=== PATIENT | male | born 1985 | race Caucasian/White ===

== ENCOUNTER 2018-01-28 05:35 | Emergency (ER) | payer OTHER ==
[2018-01-28 05:41] VITALS: BP 128/75; PULSE 108; RESP 20; TEMP 99.9
[2018-01-28] MEDS ORDERED: IBUPROFEN 400 MG TAB PO STA (05:52)
[2018-01-28] MEDS ORDERED: HYDROcodone/APAP 5-325MG 1 EACH TAB PO STA (05:52)
--- NOTE | 2018-01-28 06:16 | ED ---
Lower Extremity Injury HPI - General Chief Complaint: Extremity Injury, Lower Stated Complaint: [facility]- foot injury Time Seen by Provider: 01/28/18 05:52 Source: patient, family Mode of arrival: ambulatory Limitations: no limitations - History of Present Illness Initial Comments: Patient is a 32-year-old man who presents following a right foot injury at work. Patient reports that his foot was run over by a [employer]. He complains of pain at the base of his toes. Denies previous injury to that area. Patient also had some bleeding there. The patient states that it has probably been 15 years since he had a tetanus shot. Complaint: foot injury Onset/Timin -: hour(s) Injury: Foot: Left Type of Injury: other (Crush) Place: work Severity: moderate Improves With: nothing Worsens With: weight bearing Associated Symptoms: swelling - Related Data Home Medications Medication Instructions Recorded Confirmed Paliperidone [Invega] 6 mg PO DAILY 01/28/18 01/28/18 Previous Rx's Medication Instructions Recorded Cephalexin [Keflex] 500 mg PO Q6HR #28 cap 01/28/18 Hydrocodone/Acetaminophen [[place] 1 each PO Q6HR PRN #20 tab 01/28/18 5-325] Allergies Allergy/AdvReac Type Severity Reaction Status Date / Time No Known Allergies Allergy Verified 01/28/18 05:41 Review of Systems ROS Statement: Those systems with pertinent positive or pertinent negative responses have been documented in the HPI. ROS Other: All systems not noted in ROS Statement are negative. Constitutional: Denies: fever Respiratory: Denies: cough, dyspnea Cardiovascular: Denies: chest pain Gastrointestinal: Denies: vomiting Skin: Reports: lesions. Denies: rash Neurological: Denies: weakness, numbness Hematological/Lymphatic: Denies: easy bleeding Past Medical History Past Medical History: No Reported History History of Any Multi-Drug Resistant Organisms: None Reported Past Surgical History: Orthopedic Surgery Additional Past Surgical History / Comment(s): left knee surgery Past Psychological History: Bipolar, Depression Smoking Status: Current some day smoker Past Alcohol Use History: None Reported Past Drug Use History: None Reported - Past Family History family Additional Family Medical History / Comment(s): mental health issues runs in the family General Exam Limitations: no limitations General appearance: alert, in no apparent distress Head exam: Present: atraumatic, normocephalic Right Knee exam: Present: normal inspection, full ROM Lower Leg exam: Present: normal inspection, full ROM. Absent: tenderness Ankle exam: Present: normal inspection, full ROM. Absent: tenderness Foot/Toe exam: Present: full ROM, tenderness, swelling, laceration, ecchymosis. Absent: deformity Skin exam: Present: warm, dry, normal color Course Vital Signs 01/28/18 05:37 Temperature 99.9 F H Pulse Rate 108 H Respiratory 20 Rate Blood Pressure 128/75 O2 Sat by Pulse 100 Oximetry Disposition Clinical Impression: Toe fracture, right Disposition: HOME SELF-CARE Condition: Good Instructions: Toe Fracture (ED) Prescriptions: Cephalexin [Keflex] 500 mg PO Q6HR #28 cap Hydrocodone/Acetaminophen [[place] 5-325] 1 each PO Q6HR PRN #20 tab PRN Reason: Pain Is patient prescribed a controlled substance at d/c from ED?: Yes Referrals: None,Stated [Primary Care Provider] - 1-2 days Jagdeep Sandhu MD [STAFF PHYSICIAN] - 1-2 days
[2018-01-28] MEDS ORDERED: CEPHALEXIN 500MG STARTER PACK 4 CAP BTL PO STA (06:43)
[2018-01-28] MEDS ORDERED: ceFAZolin 1,000 MG VIAL IM STA (06:43)
--- NOTE | 2018-01-28 07:11 | XR ---
EXAM: XR Right Foot Complete, 3 or More Views CLINICAL HISTORY: ITS.REASON XR Reason: Pain TECHNIQUE: Frontal, lateral and oblique views of the right foot. COMPARISON: No relevant prior studies available. FINDINGS: Bones/joints: Comminuted displaced fracture of the second distal phalanx. No evidence of articular involvement. Tiny opacity adjacent to the lateral aspect of the PIP joint of the third toe, cannot exclude tiny avulsion fracture or foreign body. Soft tissues: Soft tissue swelling at the mid and distal foot. IMPRESSION: 1. Comminuted displaced fracture of the second distal phalanx. 2. Tiny opacity adjacent to the lateral aspect of the PIP joint of the third toe, cannot exclude tiny avulsion fracture or foreign body.
== END 2018-01-28 07:34 | disposition home or self-care (01) ==
LOC: EC 05:35
DX: S92.531A Displaced fracture of distal phalanx of right lesser toe(s), initial encounter for closed fracture (principal); F31.9 Bipolar disorder, unspecified; W23.0XXA Caught, crushed, jammed, or pinched between moving objects, initial encounter; Y92.69 Other specified industrial and construction area as the place of occurrence of the external cause; Y99.0 Civilian activity done for income or pay
CPT/HCPCS: 99283

== ENCOUNTER 2020-02-26 15:42 | Emergency (ER) | payer OTHER ==
[2020-02-26 15:53] VITALS: BP 129/92; PULSE 71; RESP 18; TEMP 97.7
[2020-02-26 17:27] LABS: Amphetamine Screen,Urine Not Detected (NotDetected); Barbiturate Screen,Urine Not Detected (NotDetected); Benzodiazepines Screen,Urine Not Detected (NotDetected); Cocaine Screen,Urine Not Detected (NotDetected); Methadone Screen, Urine Not Detected (NotDetected); Opiate Screen,Urine Not Detected (NotDetected); Oxycodone Screen, Urine Not Detected (NotDetected); Phencyclidine Screen,Urine Not Detected (NotDetected); Tricyclic Antidepressant,Urine Not Detected (NotDetected); Urn Cannabinoid Scrn Not Detected (NotDetected)
--- NOTE | 2020-02-26 17:45 | ED ---
Psych HPI - General Chief Complaint: Psychiatric Symptoms Stated Complaint: petition Time Seen by Provider: 02/26/20 16:04 Source: patient, RN notes reviewed, old records reviewed Mode of arrival: ambulatory - History of Present Illness Initial Comments: This is a 34-year-old male with a history of schizoaffective disorder who was brought in by police and a pickup order he's not been taking his medication been very volatile hospital. He doesn't want around people's property. He's had multiple interactions with police in the last week. He's had increased agitation. Not sleeping not eating. The patient is not answering questions well and is seeming somewhat evasive please see the petition MD Complaint: other - Related Data Home Medications Medication Instructions Recorded Confirmed Ibuprofen [Motrin] 800 mg PO QID PRN 02/24/18 03/24/18 Previous Rx's Medication Instructions Recorded Hydrocodone/Acetaminophen [[place] 1 each PO Q6HR PRN #20 tab 01/28/18 5-325] Allergies Allergy/AdvReac Type Severity Reaction Status Date / Time No Known Allergies Allergy Verified 03/24/18 14:06 Review of Systems ROS Statement: Those systems with pertinent positive or pertinent negative responses have been documented in the HPI. ROS Other: All systems not noted in ROS Statement are negative. Limitations: ROS unobtainable due to patients medical condition Past Medical History Past Medical History: No Reported History History of Any Multi-Drug Resistant Organisms: None Reported Past Surgical History: Orthopedic Surgery Additional Past Surgical History / Comment(s): left knee surgery Past Psychological History: Bipolar, Depression, Schizophrenia Smoking Status: Current some day smoker Past Alcohol Use History: None Reported Past Drug Use History: None Reported - Past Family History Father Family Medical History: CVA/TIA, Diabetes Mellitus Mother Additional Family Medical History / Comment(s): aortic aneurysm family Additional Family Medical History / Comment(s): mental health issues runs in the family General Exam - General Exam Comments Initial Comments: Is a well-developed sec appearing male who is awake alert but minimally commun icative Limitations: no limitations General appearance: alert, in no apparent distress Head exam: Present: atraumatic, normocephalic, normal inspection Eye exam: Present: normal appearance, PERRL, EOMI. Absent: scleral icterus, conjunctival injection, periorbital swelling ENT exam: Present: normal exam, mucous membranes moist Neck exam: Present: normal inspection. Absent: tenderness, meningismus, lymphadenopathy Respiratory exam: Present: normal lung sounds bilaterally. Absent: respiratory distress, wheezes, rales, rhonchi, stridor Cardiovascular Exam: Present: regular rate, normal rhythm, normal heart sounds. Absent: systolic murmur, diastolic murmur, rubs, gallop, clicks GI/Abdominal exam: Present: soft, normal bowel sounds. Absent: distended, tenderness, guarding, rebound, rigid Extremities exam: Present: normal inspection, full ROM, normal capillary refill. Absent: tenderness, pedal edema, joint swelling, calf tenderness Back exam: Present: normal inspection Neurological exam: Present: alert, CN II-XII intact Psychiatric exam: Present: depressed, flat affect, other (Patient is minimally communicative) Skin exam: Present: warm, dry, intact, normal color. Absent: rash Course Vital Signs 02/26/20 15:48 Temperature 97.7 F Pulse Rate 71 Respiratory 18 Rate Blood Pressure 129/92 O2 Sat by Pulse 100 Oximetry Medical Decision Making - Medical Decision Making The patient was evaluated by psychiatric service currently is not a risk to himself or anyone else he will be discharged with a safety contract. He will follow up outpatient. - Lab Data Lab Results 02/26/20 Range/Units 17:00 Urine Opiates Screen Not Detected (NotDetected) Ur Oxycodone Screen Not Detected (NotDetected) Urine Methadone Screen Not Detected (NotDetected) Ur Propoxyphene Screen Not Detected (NotDetected) Ur Barbiturates Screen Not Detected (NotDetected) U Tricyclic Antidepress Not Detected (NotDetected) Ur Phencyclidine Scrn Not Detected (NotDetected) Ur Amphetamines Screen Not Detected (NotDetected) U Methamphetamines Scrn Not Detected (NotDetected) U Benzodiazepines Scrn Not Detected (NotDetected) Urine Cocaine Screen Not Detected (NotDetected) U Marijuana (THC) Screen Not Detected (NotDetected) Disposition Clinical Impression: Schizoaffective disorder Disposition: HOME SELF-CARE Condition: Good Instructions (If sedation given, give patient instructions): Schizoaffective Disorder (ED) Is patient prescribed a controlled substance at d/c from ED?: No Referrals: None,Stated [Primary Care Provider] - 1-2 days
== END 2020-02-26 19:55 | disposition home or self-care (01) ==
LOC: EC 15:42
DX: F25.1 Schizoaffective disorder, depressive type (principal); F25.0 Schizoaffective disorder, bipolar type; F17.200 Nicotine dependence, unspecified, uncomplicated
CPT/HCPCS: 80306; 82075; 99285

== ENCOUNTER 2020-09-13 15:59 | Inpatient (IN) | payer MEDICAID, OTHER ==
--- NOTE | 2020-09-13 16:30 | ED ---
General Adult HPI - General Chief complaint: Psychiatric Symptoms Stated complaint: Mental Health Time Seen by Provider: 09/13/20 16:11 Source: patient, police, RN notes reviewed, old records reviewed Mode of arrival: ambulatory Limitations: altered mental status - History of Present Illness Initial comments: This is a 35-year-old male with a past medical history significant for bipolar and schizophrenia. Patient is supposed be on medications but he is refusing to take him. He comes to the ER petitioned and certified. Patient himself does not know why is here and does not really want to talk about it. Patient indicates that the patient is not taking any medications and he is extremely paranoid. Patient does deny any physical complaints today. Patient denies any fever chills or cough per patient denies any chest pain or difficulty breathing. Patient denies abdominal pain patient denies nausea vomiting or diarrhea. She does not answer my questions about suicidal ideations or homicidal ideations. - Related Data Home Medications Medication Instructions Recorded Confirmed No Known Home Medications 09/13/20 09/13/20 Allergies Allergy/AdvReac Type Severity Reaction Status Date / Time No Known Allergies Allergy Verified 09/13/20 16:53 Review of Systems ROS Statement: Those systems with pertinent positive or pertinent negative responses have been documented in the HPI. ROS Other: All systems not noted in ROS Statement are negative. Past Medical History Past Medical History: No Reported History History of Any Multi-Drug Resistant Organisms: None Reported Past Surgical History: Orthopedic Surgery Additional Past Surgical History / Comment(s): left knee surgery Past Psychological History: Bipolar, Depression, Schizophrenia Smoking Status: Former smoker Past Alcohol Use History: None Reported Past Drug Use History: None Reported - Past Family History Father Family Medical History: CVA/TIA, Diabetes Mellitus Mother Additional Family Medical History / Comment(s): aortic aneurysm family Additional Family Medical History / Comment(s): mental health issues runs in the family General Exam - General Exam Comments Initial Comments: GENERAL: Patient is well-developed and well-nourished. Patient is nontoxic and well- hydrated and is in no acute distress. ENT: Neck is soft and supple. No significant lymphadenopathy is noted. Oropharynx is clear. Moist mucous membranes. Neck has full range of motion without eliciting any pain. EYES: The sclera were anicteric and conjunctiva were pink and moist. Extraocular movements were intact and pupils were equal round and reactive to light. Eyelids were unremarkable. PULMONARY: Unlabored respirations. Good breath sounds bilaterally. No audible rales rhonchi or wheezing was noted. CARDIOVASCULAR: There is a regular rate and rhythm without any murmurs gallops or rubs. ABDOMEN: Soft and nontender with normal bowel sounds. SKIN: Skin is clear with no lesions or rashes and otherwise unremarkable. NEUROLOGIC: Patient is alert and oriented x3. Cranial nerves II through XII are grossly intact. Motor and sensory are also intact. Normal speech, volume and content. Symmetrical smile. MUSCULOSKELETAL: Normal extremities with adequate strength and full range of motion. No lower extremity swelling or edema. No calf tenderness. LYMPHATICS: No significant lymphadenopathy is noted PSYCHIATRIC: Patient is very hesitant to answer any questions. Patient does agree that he is not taking his medications. Limitations: altered mental status Course Vital Signs 09/13/20 16:04 Temperature 98.2 F Pulse Rate 103 H Respiratory 18 Rate Blood Pressure 103/54 O2 Sat by Pulse 99 Oximetry Medical Decision Making - Medical Decision Making Patient was evaluated. EPS and determined the patient would be admitted. Disposition Clinical Impression: Paranoid schizophrenia Disposition: ADMITTED IP TO THIS HOSP Referrals: None,Stated [Primary Care Provider] - 1-2 days Time of Disposition: 17:15
[2020-09-13] MEDS ORDERED: MAG HYDROX/AL HYDROX/SIMETH 30 ML CUP PO PRN (19:50)
[2020-09-13] MEDS ORDERED: haloperidoL 5 MG TAB PO PRN (19:52)
--- NOTE | 2020-09-14 00:19 | P.PN ---
Progress Note - Text Progress Note Date: 09/13/20 patient refused to be evaluated at this time
--- NOTE | 2020-09-14 11:48 | P.HP ---
Psychiatric H&P - . H&P Date: 09/14/20 History & Physical: Allergies Allergy/AdvReac Type Severity Reaction Status Date / Time No Known Allergies Allergy Verified 09/13/20 16:53 Vital Signs Temp 98.2 F 09/13/20 22:02 Pulse 84 09/13/20 22:02 Resp 16 09/13/20 22:02 BP 127/77 09/13/20 22:02 Pulse Ox 99 09/13/20 16:04 Intake & Output 09/13/20 09/14/20 09/14/20 18:59 06:59 18:59 Weight 70.307 kg 65.907 kg Laboratory Last Values Coronavirus (PCR) Not Detected (Not Detectd) 09/13/20 18:14 09/14/20 11:39 IDENTIFYING DATA: Patient is a single, employed, 35-year-old male who was admitted involuntarily for psychosis and nonadherence with treatment. HPI: Patient presented to the hospital with petition and certificate filled out by his outpatient psychiatrist Dr. Chand. The patient has been noted to be increasingly paranoid, responding to internal stimuli, and expressing auditory hallucinations in the context of medication nonadherence. The patient has been also been noted to be lacking significant insight into his condition believing that he is not mentally ill. As per certificate, the patient has also been hostile and aggressive to his outpatient psychiatrist. Upon evaluation in the psychiatric unit, the patient remains paranoid and responding to internal stimuli. He remains suspicious this provider and provides very limited responses. He does admit to some auditory hallucinations but is not reporting any visual hallucinations. He refuses to respond to any further questioning regarding his psychiatric symptoms. The patient expresses that he does not require any psychotropic medications as he is not mentally ill. He is not reporting any suicidal or homicidal ideation, intention, and/or plan. He reports that he has no significant issues with sleep or appetite. He does state that he has been "living in the cold"and this has been noted as a concern of his outpatient psychiatrist as the patient has not been utilizing his heater this winter. PAST PSYCHIATRIC HISTORY: The patient has a previous diagnosis of schizophrenia. He is currently open to outpatient psychiatric treatment with [facility] through Dr. Chand. He is unable to recall prior psychotropic medications he has been on. As per review of his previous psychiatric inpatient admissions (3 in 2016), the patient has had previous trials of Strattera, Zoloft, Invega and Zyprexa. He also received Invega Sustenna in the past. He is not reporting any prior attempts at suicide. PMH: No reported past medical history ALLERGIES: NO KNOWN DRUG ALLERGIES CHEMICAL DEPENDENCY HISTORY: Denies FAMILY PSYCHIATRIC/SUBSTANCE USE HISTORY: Unable to assess SOCIAL HISTORY: Patient was born and raised in [place], [place]. As per review of his chart, the patient has 2 children. Is unsure if he is still with his girlfriend as the patient is uncooperative in providing any social history. MENTAL STATUS EXAM: General Appearance: Patient appears to be stated age is alert, directable, and attempts to cooperate. Patient appears to have fair hygiene and grooming. Behavior: Patient is seated without any agitated behavior. Psychomotor activity slightly elevated. Speech: Patient's speech is nonspontaneous, monotone, very slow to respond. Very superficial. Mood/Affect: Patient reports their mood is "fine," affect is blunted and suspicious. Suicidality/Homicidality: Patient denies any suicidal or homicidal ideation, intention, and/or plan. Perceptions: Patient denies any visual hallucinations but does acknowledge some auditory hallucinations. Though content/process: Patient is very paranoid and suspicious. He appears to be responding to internal stimuli. Thought blocking is evident. Memory and concentration: AOX3, grossly intact for the purposes of this session. Can spell "WORLD" backwards Judgment and insight: poor STRENGTHS/WEAKNESSES: Patient has been noted to have a stable living environment. Weaknesses include noncompliance with outpatient treatment and appointments. Very poor insight. INTELLECT: average IMPRESSIONS: Schizophrenia PLAN: -Patient is admitted under involuntary status to [facility] for stabilization of psychiatric symptoms and safety. A second certification was completed and along with petition will be filed for court. -Medications : Will start patient on Risperdal 0.5 mg by mouth twice a day for psychosis. -We will need to obtain [facility] records -Ativan and Haldol PRN for agitation/aggression -Patient was informed of the risks, benefits and side effects of the medication and patient verbally consented to taking the medications. -Internal Medicine consult to perform medical evaluation and physical. -SW on board for discharge planning. Encourage patient to participate in groups to work on coping skills.
[2020-09-14] MEDS: risperiDONE 0.5 MG TAB PO SCH (20:48)
[2020-09-15] MEDS: risperiDONE 0.5 MG TAB PO SCH ×4 (09:11→21:57)
--- NOTE | 2020-09-15 09:48 | P.PN ---
Progress Note - Text Progress Note Date: 09/15/20 Interval History: Patient was seen wandering the hallways and was directable and agreeable to speak with casualty underwriter in the office. Patient continues to be very guarded and very limited in providing history. He is currently not reporting any suicidal or homicidal ideation, intention, or plan. He is not reporting any auditory or visual hallucinations but continues to display significant paranoia and appears to be responding to internal stimuli. He continues to refuse any medications. The patient continues to question the motivations of this provider. He reports "he about me into this office to talk so why are we talking?" When asked if he is experiencing any ideas of reference, the patient pauses and refuses to answer. Mental Status Exam: General Appearance: Patient appears to be stated age is alert, directable, and intermittently cooperative. Patient has fair hygiene and grooming. He is of thin build. Shaved head. Behavior: Patient occasionally fidgets in his chair. Although he is seated without any agitated behavior. Speech: Speech is nonspontaneous, monotone, and very slow to respond. Mood/Affect: Mood is "okay." Affect is flat. Suicidality/Homicidality: Patient denies having any suicidal or homicidal ideation intent or plan. Perceptions: Patient denies any visual hallucinations and denies any auditory hallucinations Though content/process: Thought blocking is evident. Patient does appear to be responding intentional stimuli. Patient is paranoid. Memory and concentration: AOX3, grossly intact for the purposes of this session Judgment and insight: Very poor Assessment Schizophrenia Plan: -Patient is admitted under involuntary status to [facility] for stabilization of psychiatric symptoms and safety. A second certification was completed and along with petition will be filed for court. We will likely have to wait for court order. -Medications : Continue Risperdal 0.5 mg by mouth twice a day for psychosis. -Ativan and Haldol PRN for agitation/aggression -NRT - nicotine patch -SW on board for discharge planning. Encouraged the patient to participate in milieu.
[2020-09-16] MEDS: risperiDONE 0.5 MG TAB PO SCH ×2 (08:57→22:26)
--- NOTE | 2020-09-16 10:16 | P.PN ---
Progress Note - Text Progress Note Date: 09/16/20 Interval History: Patient was seen wandering the hallways and was directable and agreeable to speak with curriculum writer in his room. The patient continues to be very minimal in his responses. He is not reporting any auditory hallucinations. He did admit to some visual hallucinations but refused to elaborate. He is not reporting any suicidal or homicidal ideation, intention, and/or plan. He refuses to cooperate with the rest of the interview. He continues to refuse any medications. He believes that he does not have any mental illness. Mental Status Exam: General Appearance: Patient appears to be stated age is alert, directable, and intermittently cooperative. Patient has fair hygiene and grooming. He is of thin build. Shaved head. Behavior: Patient refuses to sit down in his room. He prefers to stand and walk around his room. Eye contact is intense. Speech: Speech is nonspontaneous, monotone, and very slow to respond. Mood/Affect: Mood is "okay." Affect is flat. Suicidality/Homicidality: Patient denies having any suicidal or homicidal ideation intent or plan. Perceptions: Patient denies any visual hallucinations and denies any auditory hallucinations Though content/process: Thought blocking is evident. Patient does appear to be responding intentional stimuli. Patient is paranoid. Memory and concentration: AOX3, grossly intact for the purposes of this session Judgment and insight: Very poor Assessment Schizophrenia Plan: -Patient is admitted under involuntary status to [facility] for stabilization of psychiatric symptoms and safety. A second certification was completed and along with the petition was filed for court. -Medications : Continue Risperdal 0.5 mg by mouth twice a day for psychosis. - Patient continues to refuse the medication. We will likely have to wait for a court order. -Ativan and Haldol PRN for agitation/aggression -NRT - nicotine patch -SW on board for discharge planning. Encouraged the patient to participate in milieu.
[2020-09-17] MEDS: risperiDONE 0.5 MG TAB PO SCH ×2 (09:26→20:51)
--- NOTE | 2020-09-17 12:46 | P.PN ---
Progress Note - Text Progress Note Date: 09/17/20 Clinical Problems: Schizophrenia, poor compliance with medication, involuntary hospitalization Interim history: I reviewed the medical record and attempted to interview the patient. He is a 35-year-old male who has a history of schizophrenia. He is admitted to the psychiatric unit involuntarily from his outpatient psychiatrist's office for increasing signs and symptoms of psychosis. He stared blankly when I approached him for the interview. He would not give me his name. He has been refusing the prescribed risperidone. He spends his time pacing the hallway. He does not attend therapeutic groups or activities. He slept 1 hour last night. Mental status exam: He presented as a tall thin casually groomed male. He made eye contact but would not speak. He appeared markedly guarded, paranoid and suspicious. He would not answer questions about psychotic expe riences. Assessment: He is markedly paranoid and probably delusional. I also suspect that he is responding to internal stimuli. He has no insight or understanding of his illness and is refusing an antipsychotic. Plan: Continue inpatient treatment. Probate hearing pending. Encourage compliance with risperidone 0.5 mg twice a day. Ativan and/or Haldol IM or by mouth when necessary for agitation or aggression. Encourage participation in therapeutic groups and activities. Evaluate clinical status response to treatment daily basis.
[2020-09-18] MEDS: risperiDONE 0.5 MG TAB PO SCH ×2 (08:42→19:54)
--- NOTE | 2020-09-18 13:25 | P.PN ---
Progress Note - Text Progress Note Date: 09/18/20 Clinical Problems: Schizophrenia, poor compliance with medication, involuntary hospitalization Interim history: I reviewed the medical record and attempted to interview the patient. He stared blankly at me when I approached him for the interview. He refused to speak. He continues to refuse to take risperidone. He spends his time pacing the hallway. He does not attend therapeutic groups or activities. He slept 1 hour last night. Nursing is administering Ativan 1 mg by mouth for restlessness or agitation. Mental status exam: He presented as a tall thin casually groomed male. He made eye contact but would not speak. He was markedly guarded, paranoid and suspicious. He would not answer questions about psychotic experiences. Assessment: He is markedly paranoid and probably delusional. He has no insight or understanding of his illness and is refusing an antipsychotic. Plan: Continue inpatient treatment. Probate hearing pending. Encourage compliance with risperidone 0.5 mg twice a day. Ativan and/or Haldol IM or by mouth when necessary for agitation or aggression. Encourage participation in therapeutic groups and activities. Evaluate clinical status response to treatment daily basis.
[2020-09-18] MEDS: HALOPERIDOL LACTATE 5 MG/ML 1 ML VIAL IM PRN (22:27)
[2020-09-18] MEDS: LORazepam 2 MG/ML INJ IM PRN (22:27)
[2020-09-19] MEDS: risperiDONE 0.5 MG TAB PO SCH ×2 (09:21→21:21)
--- NOTE | 2020-09-19 10:26 | P.PN ---
Progress Note - Text Progress Note Date: 09/19/20 Interval History: Patient was seen at his bedside. When approached, the patient refused to speak with this provider. The patient stared blankly at this provider and refused any questioning. As per staff notes, the patient is noted to sleep for 5 hours as of 5:30 AM. On 09/18/2020, when necessary Ativan and Haldol had to be given IM with security assist. The patient was noted to be unable to be redirected directed despite multiple attempts by multiple staff members. He has been noted to be intrusive and looking in other patient's rooms and shower rooms. He has also been noted to aggravate other patients with his behavior. Mental Status Exam: General Appearance: Patient appears to be stated age is alert, directable, and intermittently cooperative. Patient has fair hygiene and grooming. He is of thin build. Shaved head. Behavior: Patient stares blankly at this provider. Speech: Patient refuses to speak today. Mood/Affect: Unable to assess mood. Affect is flat. Suicidality/Homicidality: Unable to assess Perceptions: Unable to assess Though content/process: Unable to assess Memory and concentration: Unable to assess Judgment and insight: Very poor Assessment Schizophrenia Plan: -Patient is admitted under involuntary status to [facility] for stabilization of psychiatric symptoms and safety. A second certification was completed and along with the petition was filed for court. -Medications : Continue Risperdal 0.5 mg by mouth twice a day for psychosis. - Patient continues to refuse the medication. We will likely have to wait for a court order. -Ativan and Haldol PRN for agitation/aggression -NRT - nicotine patch -SW on board for discharge planning. Encouraged the patient to participate in milieu.
[2020-09-20] MEDS: HALOPERIDOL LACTATE 5 MG/ML 1 ML VIAL IM PRN (00:22)
[2020-09-20] MEDS: LORazepam 2 MG/ML INJ IM PRN (00:23)
[2020-09-20] MEDS: risperiDONE 0.5 MG TAB PO SCH ×2 (08:35→20:39)
--- NOTE | 2020-09-20 10:17 | P.PN ---
Progress Note - Text Progress Note Date: 09/20/20 Interval History: Patient was seen at his bedside. Patient continues to refuse to participate in the psychiatric interview. He has been noted by staff to require Haldol and Ativan for threatening to kill a female peer. He was also noted to be going up to the nursing desk 30 times in 1 hour and presenting as paranoid, bizarre, and intrusive. He refuses to answer any questions by this provider. The patient only states that he feels tired. Mental Status Exam: General Appearance: Patient appears to be stated age is alert, not directable, and uncooperative.. Patient has fair hygiene and grooming. He is of thin build. Shaved head. Behavior: Patient stares blankly at this provider. Speech: Patient refuses to speak today. Mood/Affect: Unable to assess mood. Affect is flat. Suicidality/Homicidality: Unable to assess Perceptions: Unable to assess Though content/process: Unable to assess Memory and concentration: Unable to assess Judgment and insight: Very poor Assessment Schizophrenia Plan: -Patient is admitted under involuntary status to [facility] for stabilization of psychiatric symptoms and safety. A second certification was completed and along with the petition was filed for court. Court scheduled for 09/28/2019. -Medications : Continue Risperdal 0.5 mg by mouth twice a day for psychosis. - Patient continues to refuse the medication. We are awaiting court order. -Ativan and Haldol PRN for agitation/aggression -NRT - nicotine patch -SW on board for discharge planning. Encouraged the patient to participate in milieu.
[2020-09-21] MEDS: risperiDONE 0.5 MG TAB PO SCH ×2 (09:01→19:59)
--- NOTE | 2020-09-21 10:09 | P.PN ---
Progress Note - Text Progress Note Date: 09/21/20 Interval History: Patient was seen at his bedside. Patient is intimately cooperative with the psychiatric interview. Yesterday in the afternoon, he approached the provider and followed the provider around the refuse to answer any questions with responses of any substance. This morning, he is not participating in the interview again. He continues to refuse medications. Mental Status Exam: General Appearance: Patient appears to be stated age is alert, not directable, a nd uncooperative.. Patient has fair hygiene and grooming. He is of thin build. Shaved head. Behavior: Patient stares blankly at this provider. Speech: Patient refuses to speak today. Mood/Affect: Unable to assess mood. Affect is flat. Suicidality/Homicidality: Unable to assess Perceptions: Unable to assess Though content/process: Unable to assess Memory and concentration: Unable to assess Judgment and insight: Very poor Assessment Schizophrenia Plan: -Patient is admitted under involuntary status to [facility] for stabilization of psychiatric symptoms and safety. A second certification was completed and along with the petition was filed for court. Court scheduled for 09/28/2019. -Medications : Continue Risperdal 0.5 mg by mouth twice a day for psychosis. - Patient continues to refuse the medication. We are awaiting court order. -Ativan and Haldol PRN for agitation/aggression -NRT - nicotine patch -SW on board for discharge planning. Encouraged the patient to participate in milieu.
[2020-09-21] MEDS: LORazepam 1 MG TAB PO PRN (14:33)
[2020-09-21] MEDS ORDERED: LORazepam 1 MG TAB PO STA (19:15)
[2020-09-22] MEDS: risperiDONE 0.5 MG TAB PO SCH (08:54)
--- NOTE | 2020-09-22 09:37 | P.PN ---
Progress Note - Text Progress Note Date: 09/22/20 Interval History: Patient was seen wandering the hallways. Patient attempted to reach for an RN stress and made gestures to grab the RN yesterday and was given Haldol and Ativan. He has been noted by staff to be increasingly paranoid and inappropriate and entering personal space of staff members. This morning, the patient agrees to walk with this program writer but continues to provide a limited responses during the psychiatric interview. The patient reports that he is often thinking about "what is with people's eyes?" He refuses to elaborate. He does not answer any other questions presented to him. Of note, the patient to take Risperdal 0.5 mg last night. Refuse this morning's dose. Mental Status Exam: General Appearance: Patient appears to be stated age is alert, not directable, and uncooperative.. Patient has fair hygiene and grooming. He is of thin build. Shaved head. Behavior: Patient stares blankly at this provider. Speech: Patient's speech is nonspontaneous, monotone, low in volume. Mood/Affect: Unable to assess mood. Affect is flat. Suicidality/Homicidality: Unable to assess Perceptions: Unable to assess Though content/process: Unable to assess Memory and concentration: Unable to assess Judgment and insight: Very poor Assessment Schizophrenia Plan: -Patient is admitted under involuntary status to [facility] for stabilization of psychiatric symptoms and safety. A second certification was completed and along with the petition was filed for court. Court scheduled for 09/28/2019. -Medications : We will increase Risperdal to 1 mg by mouth twice a day for psychosis- Patient continues to occasionally refuse the medication. We are awaiting court order. -Ativan and Haldol PRN for agitation/aggression -NRT - nicotine patch -SW on board for discharge planning. Encouraged the patient to participate in milieu.
[2020-09-22] MEDS: risperiDONE 1 MG TAB PO SCH (21:00)
[2020-09-23] MEDS: risperiDONE 1 MG TAB PO SCH ×2 (08:30→21:18)
--- NOTE | 2020-09-23 11:37 | P.PN ---
Progress Note - Text Progress Note Date: 09/23/20 Interval History: Patient was seen wandering the hallways. Patient continues to refuse to participate in a psychiatric interview with much substance. He stated that he did not really want to answer any questions today. When asked if he was suicidal, homicidal, or expressing any hallucinations patient abruptly yelled back, "YEP! YEP! YEP!" He was asked if he would take the medications to which she did not reply. He has been documented to have difficulty sleeping as well. Mental Status Exam: General Appearance: Patient appears to be stated age is alert, not directable, and uncooperative. Patient has fair hygiene and grooming. He is of thin build. Shaved head. Behavior: Patient stares blankly at this provider. Speech: Patient's speech is nonspontaneous, high in volume today. Mood/Affect: Unable to assess mood. Affect is flat to agitated. Suicidality/Homicidality: Unable to assess Perceptions: Unable to assess Though content/process: Unable to assess Memory and concentration: Unable to assess Judgment and insight: Very poor Assessment Schizophrenia Plan: -Patient is admitted under involuntary status to [facility] for stabilization of psychiatric symptoms and safety. A second certification was completed and along with the petition was filed for court. Court scheduled for 09/28/2019. -Medications : Continue Risperdal 1 mg by mouth twice a day for psychosis- Patient continues to occasionally refuse the medication. We are awaiting court order. -Ativan and Haldol PRN for agitation/aggression -NRT - nicotine patch -SW on board for discharge planning. Encouraged the patient to participate in milieu.
[2020-09-24] MEDS: LORazepam 1 MG TAB PO PRN (00:11)
[2020-09-24] MEDS: risperiDONE 1 MG TAB PO SCH ×3 (00:11→19:36)
[2020-09-24] MEDS: ACETAMINOPHEN TAB 325 MG TAB PO PRN (09:06)
--- NOTE | 2020-09-24 10:59 | P.PN ---
Progress Note - Text Progress Note Date: 09/24/20 Interval history: Patient was seen resting on his mattress which he placed on the floor of his room which also appears to be in disarray. Patient refuses to participate in the psychiatric interview today. He keeps a bed sheet over his head and refuses to answer any questions. The patient has been noted by staff to have troubles falling asleep last night and was noted to be pacing the hallways and was causing mischief on the unit with other patients. He did take 1 mg of Risperdal last night after direction from staff. He refused any other medications. Mental Status Exam: General Appearance: Patient appears to be stated age is alert, not directable, and uncooperative. Patient is covering himself with a bedsheet. Behavior: No eye contact. Speech: Unable to assess Mood/Affect: Unable to assess mood or affect. Suicidality/Homicidality: Unable to assess Perceptions: Unable to assess Though content/process: Unable to assess Memory and concentration: Unable to assess Judgment and insight: Very poor Assessment/Plan: Continue with current diagnosis. Patient continues to meet criteria for inpatient psychiatric admission for symptom stabilization and safety. Patient will be maintained on current psychotropic medication regimen. He is scheduled for his probate Court hearing on 09/28/2020. Once court ordered, we will begin to administer psychotropic medications if necessary. Monitor for medication compliance and for any psychotropic medication side effe cts. Will continue to monitor ongoing response to treatment. Encouraged participation in milieu.
[2020-09-25] MEDS: risperiDONE 1 MG TAB PO SCH ×2 (08:29→20:50)
--- NOTE | 2020-09-25 10:58 | P.PN ---
Progress Note - Text Progress Note Date: 09/25/20 Interval history: Patient was seen resting on his mattress which he placed on the floor of his room which also appears to be in disarray. Patient continues to refuse to participate in the psychiatric interview. The patient becomes angry with this provider for entering his room. The patient states "he can enter and come and go as you please can you?" The patient does not answer any questions regarding his mental health. He was informed that he will be going to court this Saturday. He does not answer any further questioning. Mental Status Exam: General Appearance: Patient appears to be stated age is alert, not directable, and uncooperative. Patient is covering himself with a bedsheet. Behavior: No eye contact. Speech: Unable to assess Mood/Affect: Unable to assess mood . Affect appears angry. Suicidality/Homicidality: Unable to assess Perceptions: Unable to assess Though content/process: Unable to assess Memory and concentration: Unable to assess Judgment and insight: Very poor Assessment/Plan: Continue with current diagnosis. Patient continues to meet criteria for inpatient psychiatric admission for symptom stabilization and safety. Patient will be maintained on current psychotropic medication regimen as he intermittently takes the Risperdal. He is scheduled for his probate Court hearing on 09/28/2020. Once court ordered, we will begin to administer psychotropic medications if necessary. Monitor for medication compliance and for any psychotropic medication side effects. Will continue to monitor ongoing response to treatment. Encouraged participation in milieu.
[2020-09-26] MEDS: risperiDONE 1 MG TAB PO SCH ×2 (09:48→21:13)
[2020-09-27] MEDS: risperiDONE 1 MG TAB PO SCH ×2 (07:41→20:36)
--- NOTE | 2020-09-27 09:34 | P.PN ---
Progress Note - Text Progress Note Date: 09/26/20 Interval History: Patient was seen resting in bed in his room. His room appears to be in disarray. The patient placed his mattress on the floor. The patient continues to refuse to participate in the psychiatric evaluation with any effort. He continues to be intermittently cooperative and only answers a few questions but with little substance when he does. When asked what the psychiatric team can do for him, the patient states "you are supposed to do something for me?" He does not answer to any further questions during the psychiatric evaluation. Mental Status Exam: General Appearance: Patient appears to be stated age is alert, not directable, and uncooperative. Patient has fair hygiene and grooming. He is of thin build. Shaved head. Behavior: Patient stares blankly at this provider. He appears to be blinking quite often. Speech: Patient's speech is nonspontaneous, high in volume today. Mood/Affect: Unable to assess mood. Affect is flat to agitated. Suicidality/Homicidality: Unable to assess Perceptions: Unable to assess Though content/process: Unable to assess Memory and concentration: Unable to assess Judgment and insight: Very poor Assessment Schizophrenia Plan: -Patient is admitted under involuntary status to [facility] for stabilization of ps ychiatric symptoms and safety. A second certification was completed and along with the petition was filed for court. Court scheduled for 09/28/2019. -Medications : Continue Risperdal 1 mg by mouth twice a day for psychosis- Patient refused the medication for the last 2 days. We are awaiting court order. -Ativan and Haldol PRN for agitation/aggression -NRT - nicotine patch -SW on board for discharge planning. Encouraged the patient to participate in milieu.
--- NOTE | 2020-09-27 10:05 | P.PN ---
Progress Note - Text Progress Note Date: 09/27/20 Interval History: Patient was seen resting in bed in his room. His room continues to appear to be in disarray. The patient placed his mattress on the floor. The patient is responding to some questioning but continues to remain mostly uncooperative. The patient does endorse suicidal ideation when asked but is unable to elaborate on any intention or plan. He does not respond to any questioning regarding homicidal ideation, auditory hallucinations, or visual hallucinations. He continues to present with odd behavior on the unit asking bizarre and nonlinear questions to staff when he is up from bed. He did refuse breakfast this morning. He was informed that he'll be going to court tomorrow, and despite being informed about his mental health hearing before, the patient expresses surprise. Mental Status Exam: General Appearance: Patient appears to be stated age is alert, not directable, and uncooperative. Patient has fair hygiene and grooming. He is of thin build. Shaved head. Behavior: Intermittent eye contact. Psychomotor activity appears slow. Speech: Patient's speech is nonspontaneous, low in volume today. Mood/Affect: Unable to assess mood. Flat affect. Suicidality/Homicidality: Unable to assess Perceptions: Unable to assess Though content/process: Unable to assess Memory and concentration: Unable to assess Judgment and insight: Very poor Assessment Schizophrenia Plan: -Patient is admitted under involuntary status to [facility] for stabilization of psychiatric symptoms and safety. A second certification was completed and along with the petition was filed for court. Court scheduled for 09/28/2019. -Medications : Continue Risperdal 1 mg by mouth twice a day for psychosis- Patient refused the medication for the last 2 days. We are awaiting court order. -Ativan and Haldol PRN for agitation/aggression -NRT - nicotine patch -SW on board for discharge planning. Encouraged the patient to participate in milieu.
[2020-09-28] MEDS: risperiDONE 1 MG TAB PO SCH (09:03)
[2020-09-28] MEDS ORDERED: HALOPERIDOL LACTATE 5 MG/ML 1 ML VIAL IM PRN (11:35)
--- NOTE | 2020-09-28 13:33 | P.PN ---
Progress Note - Text Progress Note Date: 09/28/20 Interval History: Patient was seen wandering the hallways. The patient refused to go to court this morning. He has since been placed on a court order for mental health treatment. Patient continues to be slow in responding to any questions. Interview continues to be limited as the patient refuses to participate with any significant substance. The patient was informed that he would be receiving the medication by injection if he refuses oral medication. The patient initially seems calm, stating that he is receiving injections before so he is okay to take them again. He then refuses to participate in any further interview. Mental Status Exam: General Appearance: Patient appears to be stated age is alert, not directable, and uncooperative. Patient has fair hygiene and grooming. He is of thin build. Shaved head. Behavior: Intermittent eye contact. Psychomotor activity appears slow. Speech: Patient's speech is nonspontaneous, low in volume today. Mood/Affect: Unable to assess mood. Flat affect. Suicidality/Homicidality: Unable to assess Perceptions: Unable to assess Though content/process: Unable to assess Memory and concentration: Unable to assess Judgment and insight: Very poor Assessment Schizophrenia Plan: -Patient is admitted under involuntary status to [facility] for stabilization of psychiatric symptoms and safety. Patient is now court ordered for mental health treatment as of 09/28/2020. -Medications : We will start Haldol 2.5 mg by mouth twice a day with plans to transition the patient to Haldol Decanoate due to history of non-adherence with treatment. As the patient is under court order, the patient refuses oral Haldol he received H aldol lactate IM. -Ativan and Haldol PRN for agitation/aggression -NRT - nicotine patch - on board for discharge planning. Encouraged the patient to participate in milieu.
[2020-09-28] MEDS ORDERED: diphenhydrAMINE 25 MG CAP PO SCH (21:00)
[2020-09-28] MEDS: haloperidoL 5 MG TAB PO SCH (21:19)
[2020-09-29] MEDS: haloperidoL 5 MG TAB PO SCH (09:11)
--- NOTE | 2020-09-29 10:39 | P.PN ---
Progress Note - Text Progress Note Date: 09/29/20 Interval History: Patient was seen resting in bed and refused to get up and speak with this credit underwriter. When this provider asked him questions, the patient abruptly yells "no!" This provider informed him that he is court-ordered for medications and the patient began to echo everything the provider asked him. He has been noted to sleep for 5 hours and has been eating his meals. Mental Status Exam: General Appearance: Patient appears to be stated age is alert, not directable, and uncooperative. Patient has fair hygiene and grooming. He is of thin build. Shaved head. Behavior: Intermittent eye contact. Psychomotor activity appears slow. Speech: Abrupt and loud. Echolalia noted today. Mood/Affect: Unable to assess mood. Flat affect. Suicidality/Homicidality: Unable to assess Perceptions: Unable to assess Though content/process: Unable to assess Memory and concentration: Unable to assess Judgment and insight: Very poor Assessment Schizophrenia Plan: -Patient is admitted under involuntary status to [facility] for stabilization of psychiatric symptoms and safety. Patient is now court ordered for mental health treatment as of 09/28/2020. -Medications : We will start Haldol 2.5 mg by mouth twice a day with plans to transition the patient to Haldol Decanoate due to history of non-adherence with treatment. As the patient is under court order, the patient refuses oral Haldol he received Haldol lactate IM. -Ativan and Haldol PRN for agitation/aggression -NRT - nicotine patch -SW on board for discharge planning. Encouraged the patient to participate in milieu.
[2020-09-29] MEDS: HALOPERIDOL ORAL SOLN 10 MG/5 ML CUP PO SCH (22:22)
[2020-09-30] MEDS: HALOPERIDOL ORAL SOLN 10 MG/5 ML CUP PO SCH ×2 (08:55→21:10)
[2020-09-30] MEDS ORDERED: HALOPERIDOL LACTATE 5 MG/ML 1 ML VIAL IM PRN (10:17)
--- NOTE | 2020-09-30 10:17 | P.PN ---
Progress Note - Text Progress Note Date: 09/30/20 Interval History: Patient was seen resting in bed today. The patient states that he feels "numb." When asked to explain, the patient is unable to further elaborate. He is not reporting any suicidal or homicidal ideation, intention, and/or plan. When asked if he is endorsing any auditory hallucinations, the patient replies "Yep." He is not reporting any visual hallucinations. She continues to not elaborate further on any of his symptoms. He did not report any issues with his appetite or sleep. Mental Status Exam: General Appearance: Patient appears to be stated age is alert, not directable, and uncooperative. Patient has fair hygiene and grooming. He is of thin build. Shaved head. Behavior: Eye contact is slowly improving. Psychomotor activity appears slow. Speech: Much more spontaneous today. Continues to be minimal. Mood/Affect: Patient feels "numb." Flat affect. Suicidality/Homicidality: Patient denies any suicidal or homicidal ideation, intent, and/or plan. Perceptions: Patient admits auditory hallucinations. Though content/process: Thought blocking appears to be less today. Memory and concentration: Intact for the purposes of this session Judgment and insight: Very poor Assessment Schizophrenia Plan: -Patient is admitted under involuntary status to [facility] for stabilization of psychiatric symptoms and safety. Patient is now court ordered for mental health treatment as of 09/28/2020. -Medications : We will increase his Haldol oral solution to 4 mg by mouth twice a day. Over the weekend he'll gradually titrated to 5 mg by mouth twice a day. The plan is to transition the patient to Haldol Decanoate due to concern that the patient will be nonadherent with treatment. As the patient is under court order, if the patient refuses oral Haldol he received Haldol lactate IM. -Ativan and Haldol PRN for agitation/aggression -NRT - nicotine patch -SW on board for discharge planning. Encouraged the patient to participate in milieu.
[2020-10-01] MEDS: HALOPERIDOL ORAL SOLN 10 MG/5 ML CUP PO SCH ×2 (08:56→21:36)
--- NOTE | 2020-10-01 16:04 | P.PN ---
Progress Note - Text Progress Note Date: 10/01/20 Clinical Problems: Schizophrenia Interim history: I reviewed the medical record and attempted to interview the patient. He would not make eye contact, get out of bed for the interview or speak. He he shook his head indicating "no" when I asked him if he has any problems or concerns. He has been complaint with Haldol. He does not attend therapeutic groups and activities. He spends his time in bed and only coming out for medications or meals. He slept 7 hours last night. He has had no episodes of behavioral dyscontrol Mental status exam: He stated as a thin disheveled appearing 35-year-old male who is laying in bed. He would not contact but appeared to be attending to the conversation. He would not speak. He did not appear to be responding to internal stimuli. Assessment: He was court ordered for treatment as of 09/28/2020. Plan: Continue inpatient treatment. Safety precautions. Continue Haldol 5 mg twice a day. Encourage participation in therapeutic groups and activities. Evaluate clinical status response to treatment daily basis..
[2020-10-02] MEDS: HALOPERIDOL ORAL SOLN 10 MG/5 ML CUP PO SCH ×2 (09:26→21:28)
--- NOTE | 2020-10-02 13:22 | P.PN ---
Progress Note - Text Progress Note Date: 10/02/20 Clinical Problems: Schizophrenia Interim history: I reviewed the medical record and attempted to interview the patient. He would not make eye contact or get out of bed for the interview. His only complaint works that his "knows was stuffed up." He has been compliant with prescribed medications. He does not attend therapeutic groups and activities. He spends his time in bed and only coming out for medications or meals. He slept 6 hours last night. He has had no episodes of behavioral dyscontrol Mental status exam: He resented as a thin disheveled appearing 35-year-old male who is laying in bed. He did not make eye contact but appeared to be attending to the conversation. He was irritable. He would not answer questions. He did not appear to be responding to internal stimuli. Assessment: He is severely mentally ill minimally improved from admission. Plan: Continue inpatient treatment. Safety precautions. Continue Haldol 5 mg twice a day. Encourage participation in therapeutic groups and activities. Evaluate clinical status response to treatment daily basis.
[2020-10-03] MEDS: HALOPERIDOL ORAL SOLN 10 MG/5 ML CUP PO SCH ×2 (08:28→20:14)
--- NOTE | 2020-10-03 10:28 | P.PN ---
Progress Note - Text Progress Note Date: 10/03/20 Interval History: Patient was seen resting in bed today. The patient continues to express that he just feels "numb." He continues to be oppositional when providing answers. He expresses that he is constantly thinking of how to get out of here. He does not believe he is schizophrenic. He is not reporting any auditory or visual hallucinations. He is not reporting any suicidal or homicidal ideation, intent, and/or plan. He continues to endorse paranoia towards his treatment team. When informed that he would have to display an ability to care for himself prior to discharge, patient vehemently states that he was not given the opportunity to shower during this admission. He also reported that he is not eating despite being confronted that he has been documented to eat. Mental Status Exam: General Appearance: Patient appears to be stated age is alert, not directable, and uncooperative. Patient has fair hygiene and grooming. He is of thin build. Shaved head. Behavior: High contact is intense. Psychomotor activity appears elevated. Patient intermittently covers himself of his bed sheets. Speech: Spontaneous, loud in volume Mood/Affect: Patient feels "numb." Irritable affect. Suicidality/Homicidality: Patient denies any suicidal or homicidal ideation, intent, and/or plan. Perceptions: Patient does not endorse any auditory or visual hallucinations. Though content/process: Paranoia is evident. Memory and concentration: Intact for the purposes of this session Judgment and insight: Very poor Assessment Schizophrenia Plan: -Patient is admitted under involuntary status to MHU for stabilization of psychiatric symptoms and safety. Patient is now court ordered for mental health treatment as of 09/28/2020. -Medications : We will increase Haldol to 7.5 mg by mouth twice a day. The plan is to transition the patient to Haldol Decanoate due to concern that the patient will be nonadherent with treatment. As the patient is under court order, if the patient refuses oral Haldol he received Haldol lactate IM. -The patient may require adult foster care or [facility]ci setting due to the severity of his mental illness. -Ativan and Haldol PRN for agitation/aggression -NRT - nicotine patch -SW on board for discharge planning. Encouraged the patient to participate in milieu.
[2020-10-03] MEDS: MAGNESIUM HYDROXIDE 2,400 MG/10 ML CUP PO PRN (20:16)
[2020-10-04] MEDS: HALOPERIDOL ORAL SOLN 10 MG/5 ML CUP PO SCH ×2 (09:05→20:13)
--- NOTE | 2020-10-04 12:35 | P.PN ---
Progress Note - Text Progress Note Date: 10/04/20 Clinical Problems: Schizophrenia Interim history: I reviewed the medical record, interviewed the patient and discussed his treatment and treatment plan during team meeting. He would not get up at for interview. He made brief eye contact but would not speak. Nursing staff reports that he is been irritable throughout the day and initially refused his oral dose of Haldol. When he was presented with the choice between the oral medication and the IM injection he chose the oral. He slept 6 hours last night. He attended 2 therapeutic groups yesterday. Mental status exam: He presented as irritable and angry 35-year-old male who was uncooperative. He made brief eye contact. He had no prominent physical abnormalities. He had an angry facial expression. His he was voluntarily mute. I could not evaluate his thought content and thought process due to his refusal to speak. She did not appear to responding to internal stimuli. Assessment: He is seriously mentally ill and moderately improved from admission. He continues to require inpatient treatment due to severity of his psychotic disorder. Plan: Continue inpatient treatment. Continue Haldol 7.5 mg twice a day. Continue Haldol and/or Ativan when necessary for agitation or aggression. Encourage participation in therapeutic groups and activities. Evaluate clinical status response to treatment daily basis.
[2020-10-04] MEDS: MAGNESIUM HYDROXIDE 2,400 MG/10 ML CUP PO PRN (20:14)
[2020-10-05] MEDS: HALOPERIDOL ORAL SOLN 10 MG/5 ML CUP PO SCH ×2 (08:53→20:20)
--- NOTE | 2020-10-05 11:15 | P.PN ---
Progress Note - Text Progress Note Date: 10/05/20 Interval History: Patient was seen resting in bed today. The patient is confrontational today. He calls this provider "retarded" when he was asked general screening questions. The patient states that he is upset that he is still currently admitted and does not believe he needs any treatment. He does not report any auditory or visual hallucinations. He is denying any paranoia or delusions. He does not answer any questions regarding any suicidal or homicidal ideation, intention, and/or plan. Of note, the patient has been noted by staff to be difficult and taking his medications. He does take them in the end though. Mental Status Exam: General Appearance: Patient appears to be stated age is alert, not directable, and uncooperative. Patient has fair hygiene and grooming. He is of thin build. Shaved head. Behavior: High contact is intense. Psychomotor activity appears elevated. Speech: Spontaneous, normal in volume. Mood/Affect: Patient feels "annoyed." Irritable affect. Suicidality/Homicidality: Unable to assess Perceptions: Patient does not endorse any auditory or visual hallucinations. Though content/process: Paranoia is evident. Memory and concentration: Intact for the purposes of this session Judgment and insight: Very poor Assessment Schizophrenia Plan: -Patient is admitted under involuntary status to MHU for stabilization of psychiatric symptoms and safety. Patient is now court ordered for mental health treatment as of 09/28/2020. -Medications : We will increase Haldol to 10 mg by mouth twice a day. The plan is to transition the patient to Haldol Decanoate due to concern that the patient will be nonadherent with treatment. As the patient is under court order, if the patient refuses oral Haldol he received Haldol lactate IM. -The patient may require adult foster care or [facility] setting due to the severity of his mental illness. -Ativan and Haldol PRN for agitation/aggression -NRT - nicotine patch -SW on board for discharge planning. Encouraged the patient to participate in milieu.
--- NOTE | 2020-10-05 12:52 | P.PN ---
Progress Note - Text Progress Note Date: 10/05/20 Interval History: Patient continues to be somnolent and unresponsive today. She is nonverbal. She has been noted to be somewhat arousable at times by nursing staff but remains primarily unchanged since admission. We are unable to obtain any significant history today. Mental Status Exam: General Appearance: Patient has NG Tube in place. She appears her stated age. No acute distress. Behavior: Patient is somnolent but arousable. She makes appropriate eye contact. Speech: Nonverbal today. Mood/Affect: Unable to assess Suicidality/Homicidality: Unable to assess Perceptions: Unable to assess Though content/process: Unable to assess Memory and concentration: Unable to assess Judgment and insight: poor Assessment Encephalopathy Major Depressive Disorder, with catatonia UTI Plan: -We will increase Ativan to 3 mg IV every 6 hours. When the patient was at a dose of 3.5 mg IV every 6 hours, the patient appeared to be doing significantly better in regards to responsiveness. -After discussion with neurology and the primary team, the recommendation will be that the patient is transferred to a facility that can administer ECT. The patient is able to respond to Ativan but we are limited due to the patient's age. We recommend that the patient be evaluated in a facility that can offer ECT to treat the patient's catatonia. The patient's Lauren Nick rating scales for catatonia have been placed in her chart. -Will continue lamictal at this time. -Psychiatry will continue to follow loosely.
[2020-10-05 14:12] VITALS: BMI 21.4
[2020-10-06] MEDS: HALOPERIDOL ORAL SOLN 10 MG/5 ML CUP PO SCH ×2 (08:38→20:19)
--- NOTE | 2020-10-06 10:44 | P.PN ---
Progress Note - Text Progress Note Date: 10/06/20 Interval History: Patient was seen resting in bed today. The patient continues to be irritable and occasionally confrontational. When asked if he was feeling suicidal, the patient brushes off the question and then states that he artery answered it when he did not. He is currently not reporting any auditory or visual hallucinations. He tends to repeat what is asked of him back to this provider. He has been adherent with his medications and is currently not reporting any significant side effects. He terminates the interview because he states he has to use the restroom. Patient's room is noticed to be unkempt and disheveled as well. Mental Status Exam: General Appearance: Patient appears to be stated age is alert, not directable, and uncooperative. Patient has fair hygiene and grooming. He is of thin build. Shaved head. Behavior: Eye contact continues to be intense but intermittent. Psychomotor activity appears elevated. Speech: Spontaneous, normal in volume. Mood/Affect: Patient feels "annoyed." Irritable affect. Suicidality/Homicidality: Unable to assess Perceptions: Patient does not endorse any auditory or visual hallucinations. Though content/process: Paranoia is evident. Memory and concentration: Intact for the purposes of this session Judgment and insight: Very poor Assessment Schizophrenia Plan: -Patient is admitted under involuntary status to MHU for stabilization of psychiatric symptoms and safety. Patient is now court ordered for mental health treatment as of 09/28/2020. -Medications : Continue Haldol 10 mg by mouth twice a day. We will administer Haldol Decanoate tomorrow. -The patient may require adult foster care or skilled nursing setting due to the severity of his mental illness. -Ativan and Haldol PRN for agitation/aggression -NRT - nicotine patch -SW on board for discharge planning. Encouraged the patient to participate in milieu.
[2020-10-07] MEDS: HALOPERIDOL ORAL SOLN 10 MG/5 ML CUP PO SCH (08:32)
[2020-10-07] MEDS ORDERED: HALOPERIDOL DECANOATE 100 MG/ML 1 ML VIAL IM STA (10:42)
--- NOTE | 2020-10-07 11:04 | P.PN ---
Progress Note - Text Progress Note Date: 10/07/20 Interval History: Patient was seen resting in bed today. The patient continues to be confrontational or oppositional. During the mornings he tends to be irritable and uncooperative with any psychiatric interview. In the afternoons he has been noted to be acting odd and has requested to hold the hand of this provider multiple times. Of note, the patient's mother had a significant discussion with our social insurance specialist who reported that "he does not sound right. I know he's taking the medication but it isn't helping. I tried to talk about the injection and he got angry." The patient's mother reports that the patient is not at baseline. The patient has also verbalized to her that he would shoot himself in the head or punch someone in the face. He has been adherent with his medications and is not reporting any significant side effects at this time. Mental Status Exam: General Appearance: Patient appears to be stated age is alert, not directable, and uncooperative. Patient has fair hygiene and grooming. He is of thin build. Shaved head. Behavior: Eye contact continues to be intense but intermittent. Psychomotor activity appears normal. Speech: Spontaneous, normal in volume. Mood/Affect: Patient feels "annoyed." Irritable affect. Suicidality/Homicidality: Patient is not reporting any suicidal or homicidal ideation, intention, and/or plan. Perceptions: Patient does not endorse any auditory or visual hallucinations. Though content/process: Paranoia is evident. Memory and concentration: Intact for the purposes of this session Judgment and insight: Very poor Assessment Schizophrenia Plan: -Patient is admitted under involuntary status to MHU for stabilization of psychiatric symptoms and safety. Patient is now court ordered for mental health treatment as of 09/28/2020. -Medications : We will administer Haldol Decanoate 100 mg IM today. The patient will receive Haldol Decanoate 100 mg IM as well on Saturday. -We will need to discuss with the patient's ACT team possible Crisis bed step- down. -The patient may require adult foster care or residential setting due to the severity of his mental illness. -Ativan and Haldol PRN for agitation/aggression -NRT - nicotine patch -SW on board for discharge planning. Encouraged the patient to participate in milieu.
--- NOTE | 2020-10-08 12:01 | P.PN ---
Progress Note - Text Progress Note Date: 10/08/20 Interval history: Patient was seen laying in his bed which was on the floor in his room and was fairly uncooperative and argumentative with telegraphic typewriter mechanic. He refused to answer most questions that telegraphic typewriter mechanic asked. He is denying any overnight complaints and states that he is sleeping fairly. He rephrases many questions back to telegraphic typewriter mechanic in a defiant manner. He appears to have minimal insight and judgment. He denied going to any groups today. At this time patient denies any suicidal or homicidal ideations intent or plan. Denies any Auditory or visual hallucinations. Mental status exam: General Appearance: Patient appears to be stated age is alert, uncooperative and argumentative. Behavior: No agitated behavior. Patient is calm and directable uncooperative. Speech: Patient's speech is fluent and nonpressured. Mood/Affect: Mood is "fine", affect is congruent and constricted. Suicidality/Homicidality: Patient denies having any suicidal or homicidal ideation intent or plan. Perceptions: Patient denies any auditory or visual hallucinations. Though content/process: [place], poverty of content. Rephrases many questions and refuses to answer. Minimal insight in judgment. Memory and concentration: AOX3, grossly intact for the purposes of this session Judgment and insight: Poor Assessment/Plan: Continue with current diagnosis. Patient continues to meet criteria for inpatient psychiatric admission for symptom stabilization and safety.Patient will be maintained on current psychotropic medication regimen. Patient is being transitioned onto Haldol Decanoate and will received his next injection on Saturday. Monitor for medication compliance and for any psychotropic medication side effects. Will continue to monitor ongoing response to treatment. Encouraged participation in milieu.
[2020-10-08] MEDS: ACETAMINOPHEN TAB 325 MG TAB PO PRN (21:15)
--- NOTE | 2020-10-09 10:29 | P.PN ---
Progress Note - Text Progress Note Date: 10/09/20 Interval history: Patient was seen laying in his bed which was on the floor in his room and con tinues to be fairly uncooperative and argumentative with caption writer. Patient was initially living with his bed sheets covering his face and refused to wake up for caption writer initially. Patient asked caption writer "who the hell are you" and states that "you have some plastic thing that says Vu but I don't trust you". He refused to answer most questions that caption writer asked or answered them bizarrely and redirect them back at caption writer. He is denying any overnight complaints and states that he is sleeping fairly. He appears to have minimal insight and judgment. At this time patient denies any suicidal or homicidal ideations intent or plan. Denies any Auditory or visual hallucinations. Patient abruptly ended interview and told caption writer that he does not want to talk to him any longer. Mental status exam: General Appearance: Patient appears to be stated age is alert, uncooperative and argumentative. Behavior: No agitated behavior. Patient is uncooperative. Hostile. Speech: Patient's speech is fluent and nonpressured. Mood/Affect: Mood is "ok", affect is congruent and constricted. Suicidality/Homicidality: Patient denies having any suicidal or homicidal ideation intent or plan. Perceptions: Patient denies any auditory or visual hallucinations. Though content/process: [place], poverty of content. Rephrases many questions and refuses to answer. Minimal insight in judgment. Memory and concentration: AOX3, grossly intact for the purposes of this session Judgment and insight: Poor Assessment/Plan: Continue with current diagnosis. Patient continues to meet criteria for inpatient psychiatric admission for symptom stabilization and safety.Patient will be maintained on current psychotropic medication regimen. Patient is being transitioned onto Haldol Decanoate and will received his next injection on Saturday. Monitor for medication compliance and for any psychotropic medication side effects. Will continue to monitor ongoing response to treatment. Encouraged participation in milieu.
[2020-10-09] MEDS: HALOPERIDOL LACTATE 5 MG/ML 1 ML VIAL IM PRN (16:19)
[2020-10-09] MEDS: LORazepam 2 MG/ML INJ IM PRN (16:19)
[2020-10-09] MEDS ORDERED: HALOPERIDOL LACTATE 5 MG/ML 1 ML VIAL IM ONE (16:40)
[2020-10-09] MEDS ORDERED: LORazepam 2 MG/ML INJ IM STA (16:40)
[2020-10-09 16:54] VITALS: RESP 18
--- NOTE | 2020-10-09 17:01 | P.MHFACE ---
Face to Face Restrain/Seclus - Evaluation Patient's Immediate Situation: Endangers others' safety, Endangers staff safety Patient's Medical & Behavioral Condition: Alert, Agitated (Evaluated the patient patient is in 4 point restraints still agitated patient in dangers the staff safety and we are called to evaluate the patient patient in no medical distress patient continues to be not cooperative patient received Haldol continue 4. restraints as recommended by psychiatry) Need to Continue or Terminate Restraint or Seclusion: Continue (Patient is in 4 point restraints and and we are called to evaluate patient continues to be agitated not cooperative patient needs to be continued on the restraint as recommended by psychiatry until medication response)
[2020-10-10] MEDS ORDERED: HALOPERIDOL DECANOATE 100 MG/ML 1 ML VIAL IM ONE (06:00)
[2020-10-10] MEDS ORDERED: HALOPERIDOL DECANOATE 100 MG/ML 1 ML VIAL IM SCH (10:00)
--- NOTE | 2020-10-10 12:09 | P.PN ---
Progress Note - Text Progress Note Date: 10/10/20 Interval History: Patient was seen wandering the hallways and was directable and agreeable to speak with inspector automatic typewriter in his room with no one else present. Patient expresses that he is upset that he is currently admitted. He does not believe that he needs to be treated for mental health reasons. He was informed that he has been court ordered for mental health treatment and expresses that he is upset with this decision. He was informed that he was offered a chance to represent himself to the commercial collections specialist but that he refused. The patient becomes upset at this and is asking if he can be discharged. He was informed that there is still concern for his behaviors and his lack of mental stability at this time due to his recent episodes of agitation, and bizarre behavior. Patient continues to deny any of these as actually occurring. The patient continues to be intrusive with staff and peers he has been noted to be attempting to grab at female staff and asking male staff to hold his hand and enter their personal space. He has been adherent with his medications and received Haldol Decanoate on Saturday and will be receiving another dose today. Over the weekend, the patient required restraints after the patient began yelling and a female staff in a female peer in the hallway. He was also noted to be throwing things in his room. He is resisted IM medications and became aggressive toward staff and security. Mental Status Exam: General Appearance: Patient appears to be stated age, is alert, difficult to direct, and intermittently cooperative. Behavior: Patient appears to be irritable and is constantly pacing about in his room. Eye contact is intermittent but intense. Speech: Patient's speech is fluent and nonpressured. Mood/Affect: Mood is irritable, affect is angry. Suicidality/Homicidality: Patient does not endorse any suicidal or homicidal ideation, intention, and/or plan. Perceptions: Patient refuses to answer. Though content/process: Patient does endorse some paranoia today. Memory and concentration: Grossly intact for the purposes of today's session. Judgment and insight: Very poor Assessment Schizophrenia Plan: -Patient continues to meet criteria for inpatient psychiatric admission for symptom stabilization and safety. Patient is currently under court order for mental health treatment as of 09/28/2020. -Medications: Haldol Decanoate 100 mg IM will be administered today. We will start Depakote 500 mg by mouth at bedtime to address mood stability/impulsivity/intrusiveness. -When necessary Ativan and Haldol for agitation/aggression. -NRT - nicotine patch -LAITH on board for discharge planning. Encouraged the patient to participate in john goyal.
[2020-10-10] MEDS ORDERED: DIVALPROEX ER 500 MG TAB.ER.24H PO SCH (21:00)
[2020-10-10] MEDS: ACETAMINOPHEN TAB 325 MG TAB PO PRN (22:48)
--- NOTE | 2020-10-11 11:42 | P.PN ---
Progress Note - Text Progress Note Date: 10/11/20 Interval History: Patient was seen wandering the hallways and was directable and was initially agreeable to speak with freelance writer in his room with no one else present. Patient reports that he just feels constantly tired. He states that he missed breakfast this morning because of the side effects and the dictation making him feel overly sedated. When asked the normal screening questions, the patient does express that he is not suicidal but expresses that he is very annoyed that he is constantly asked if he is. He denies any homicidal ideation, intent, and/or plan. When asked if he is expressing auditory hallucinations, the patient refuses to answer. The patient has been noted yesterday afternoon to be sexually inappropriate with female staff. He had been asked multiple times to get away from the nursing station. The patient did receive Haldol Decanoate yesterday. He is currently not reporting any side effects aside from sedation. Patient continues to express significant distrust with the treatment team as well as his outpatient provider. He does not believe that he needs to be here any longer and feels like people are conspiring against him. Mental Status Exam: General Appearance: Patient appears to be stated age, is alert, difficult to direct, and intermittently cooperative. Behavior: Patient has covered himself with his bedsheets and away from this provider No eye contact today. Speech: Patient's speech is fluent and nonpressured. Patient raises his voice. He is noted to be more spontaneous today. Mood/Affect: Mood is irritable, affect is angry. Suicidality/Homicidality: Patient does not endorse any suicidal or homicidal ideation, intention, and/or plan. Perceptions: Patient refuses to answer. Though content/process: Paranoia is endorsed. Fixated on discharge. Memory and concentration: Grossly intact for the purposes of today's session. Judgment and insight: Very poor Assessment Schizophrenia Plan: -Patient continues to meet criteria for inpatient psychiatric admission for symptom stabilization and safety. Patient is currently under court order for mental health treatment as of 09/28/2020. -Medications: Haldol Decanoate 100 mg IM was administered yesterday. The patient has received a total of 200 mg IM of Haldol Decanoate. We will change the patient's Depakote to Depakene syrup and increase it to 750 mg by mouth at bedtime to address impulsivity and mood stabilization. -When necessary Ativan and Haldol for agitation/aggression. -NRT - nicotine patch -SW on board for discharge planning. Encouraged the patient to participate in milieu.
[2020-10-11] MEDS ORDERED: VALPROIC ACID ORAL SOLN 250 MG/5 ML CUP PO SCH (21:00)
[2020-10-12] MEDS: ACETAMINOPHEN TAB 325 MG TAB PO PRN (09:19)
--- NOTE | 2020-10-12 11:21 | P.PN ---
Progress Note - Text Progress Note Date: 10/12/20 Interval History: Patient was seen wandering the hallways and was directable and was agreeable to speak with pattern chart writer in his room with no one else present. We discussed at length that his ACT team felt that he was not currently ready for discharge. The patient responds "they barely know me as a person, how do they know what I'm actually like?" He was also informed that he continues to display some auditory and intrusive behaviors towards staff. Patient was informed that the treatment team needs to see an improvement in behavior before we can consider discharge. He initially provides a confrontational response but later lens. He is not reporting any suicidal or homicidal ideation, intention, and/or plan. He is not reporting auditory or visual hallucinations. He denies any paranoia or delusions at this time. He is been adherent with his medications he is not reporting any significant side effects. Mental Status Exam: General Appearance: Patient appears to be stated age, is alert, directable, and intermittently cooperative. Behavior: Patient has covered himself with his bedsheets and away from this provider. Intermittent eye contact today. Speech: Patient's speech is fluent and nonpressured. Spontaneous. Mood/Affect: Mood is irritable, affect is frustrated. Suicidality/Homicidality: Patient does not endorse any suicidal or homicidal ideation, intention, and/or plan. Perceptions: Patient reports no auditory or visual hallucinations. Though content/process: No delusional thought content is endorsed. Memory and concentration: Grossly intact for the purposes of today's session. Judgment and insight: Very poor Assessment Schizophrenia Plan: -Patient continues to meet criteria for inpatient psychiatric admission for symptom stabilization and safety. Patient is currently under court order for mental health treatment as of 09/28/2020. -Medications: Haldol Decanoate 100 mg IM was administered yesterday. The patient has received a total of 200 mg IM of Haldol Decanoate. We will increase Depakene syrup to 1000 mg by mouth at bedtime. - Patient appears to be somewhat more directable and cooperative today. Will check depakote level saturday. -When necessary Ativan and Haldol for agitation/aggression. -NRT - nicotine patch -SW on board for discharge planning. Encouraged the patient to participate in milieu.
[2020-10-12] MEDS: VALPROIC ACID ORAL SOLN 250 MG/5 ML CUP PO SCH (20:48)
[2020-10-12] MEDS: IBUPROFEN 400 MG TAB PO PRN (20:49)
--- NOTE | 2020-10-13 10:26 | P.PN ---
Progress Note - Text Progress Note Date: 10/13/20 Interval History: Patient was seen resting in bed and was confrontational and irritable on approach. The patient continues to ask this provider "why do you keep asking the same questions every day?" This provider continues to educate the patient that it is his job to evaluate the patient's mental health daily and to screen for concerns for suicidality, homicidality, and psychosis. The patient continues to be confrontational and responds yes to every question. He states that he is suicidal, homicidal, and experiencing auditory and visual hallucinations. He reports that there is some paranoia. He does not expand on this provider tries to further explore. He has been adherent with his medications but is not reporting any significant side effects at this time. Mental Status Exam: General Appearance: Patient appears to be stated age, is alert, difficult to dir ect, and uncooperative. Behavior: Patient has covered himself with his bedsheets and away from this provider. Intermittent eye contact today. Speech: Patient's speech is fluent and nonpressured. The patient is very bob in his responses. Mood/Affect: Mood is irritable, affect is angry. Suicidality/Homicidality: Patient endorses suicidal and homicidal ideation. Perceptions: Patient endorses auditory and visual hallucinations. Though content/process: Patient endorses paranoia. Memory and concentration: Grossly intact for the purposes of today's session. Judgment and insight: Very poor Assessment Schizophrenia Plan: -Patient continues to meet criteria for inpatient psychiatric admission for symptom stabilization and safety. Patient is currently under court order for mental health treatment as of 09/28/2020. -Medications: The patient has received a total of 200 mg IM of Haldol Decanoate. Continue Depakene syrup to 1000 mg by mouth at bedtime. Will check depakote level saturday. -When necessary Ativan and Haldol for agitation/aggression. -NRT - nicotine patch -SW on board for discharge planning. Encouraged the patient to participate in milieu.
[2020-10-13] MEDS: VALPROIC ACID ORAL SOLN 250 MG/5 ML CUP PO SCH (20:34)
--- NOTE | 2020-10-14 10:31 | P.PN ---
Progress Note - Text Progress Note Date: 10/14/20 Interval History: Patient was seen resting in bed and was confrontational and irritable on approach. Patient abruptly answers yes to all the psychiatric screening questions. He said yes to suicidal and homicidal ideation. He reported yes to auditory and visual hallucinations. He refuses to elaborate on any of these symptoms. He later was open to more conversation. We discussed at length that the patient is currently admitted and has a guardian due to his inability to care for himself secondary to his mental illness. The patient continues to report that he does not have a mental illness that needs treating and that he is able to care for himself. This provider also discussed with the patient that he needs to display good behavior prior to discharge. He remains confrontational but has been adherent with his medications. He is currently not reporting any significant side effects. The patient expresses that he is upset with his mother ran a is his guardian stating that she has an inability to care for herself and that she is a 100 needs to be petitioned and brought to the hospital. Mental Status Exam: General Appearance: Patient appears to be stated age, is alert, difficult to direct, and uncooperative. Behavior: Patient is lying in bed but is currently not displaying any agitated behavior. Intense eye contact. Speech: Patient's speech is fluent and nonpressured. The patient is very bob in his responses. Mood/Affect: Mood is irritable, affect is annoyed and frustrated. Suicidality/Homicidality: Patient endorses suicidal and homicidal ideation. Perceptions: Patient endorses auditory and visual hallucinations. Though content/process: Patient endorses paranoia. Memory and concentration: Grossly intact for the purposes of today's session. Judgment and insight: Very poor Assessment Schizophrenia Plan: -Patient continues to meet criteria for inpatient psychiatric admission for symptom stabilization and safety. Patient is currently under court order for mental health treatment as of 09/28/2020. -Medications: The patient has received a total of 200 mg IM of Haldol Decanoate. Continue Depakene syrup to 1000 mg by mouth at bedtime. Depakote level ordered. -When necessary Ativan and Haldol for agitation/aggression. -NRT - nicotine patch -SW on board for discharge planning. Encouraged the patient to participate in milieu.
[2020-10-14] MEDS: VALPROIC ACID ORAL SOLN 250 MG/5 ML CUP PO SCH (20:26)
[2020-10-14] MEDS: MAGNESIUM HYDROXIDE 2,400 MG/10 ML CUP PO PRN (21:42)
--- NOTE | 2020-10-15 17:08 | P.PN ---
Subjective Progress Note Date: 10/15/20 Subjective: Patient was seen today as a cross coverage for . The patient was mary gil, chart reviewed, case discussed with the treatment team. Patient reports interrupted sleep last night, and appetite was reported as " decreased". Patient has not been going to groups and other unit activities. The patient is compliant with his medications and denies any adverse reactions. Patient was very superficial and guarded in answering questions. Reports continued to feel depressed and has high anxiety. Reports suicidal ideation but denies any plan or intent to hurt himself or others. When asking about auditory hallucinations, he responded "I hear your voice". He refused to answer some questions and started to ask about "when I am going to leave". Patient was educated to discuss discharge plan with his primary psychiatrist Objective: Vitals has been reviewed. Mental status examination; Appearance: The patient appears stated age, adequately groomed and dressed, no specific features. Gait/posture: Normal gait, Normal arm swinging: No abnormal movements. Attitude and behavior: Not engaged, not cooperative, poor eye contact. Motor activity: Normal psychomotor activity Speech: Normal rate, tone. Mood: Anxious, depressed Affect: Constricted Thought form: Impoverished Thought content: Non-delusional, reports suicidal thoughts, denies homicidal thoughts, denies intentions or plans. Perception: Denies any auditory or visual hallucinations Attention: No impairment. Orientation: Patient patient was fully oriented to time place person and situation. Insight: Patient has fair insight about his psychiatric disorder. Judgment: Patient has fair judgment about his psychiatric treatment. Assessment: Schizophrenia Rule out schizoaffective disorder Plan: Continue inpatient level of care due to need for further monitoring and stabilization Precautions: Continue 15 minutes check for safety. Consider medical consultation if any acute medical issues arise. Provide the patient individual, group therapy, substance use disorder counseling to give better insight and learn coping skills. Medications: Haldol Decanoate last dose 100 mg IM given on 10/10/20 Depakote 1000 mg at bedtime for mood stabilization. Continue as needed medications for psychiatric emergencies including psychosis, agitation and anxiety. Continue non-psychiatric medications for medical conditions as recommended by the medical team. Discharge patient to OUTPATIENT services upon a stabilization Objective - Vital Signs Vital signs: Vital Signs Temp 97.1 F L 10/13/20 11:55 Pulse 89 10/09/20 17:23 Resp 18 10/09/20 17:23 BP 116/64 10/09/20 17:23 Pulse Ox 98 10/09/20 17:23
[2020-10-15] MEDS: VALPROIC ACID ORAL SOLN 250 MG/5 ML CUP PO SCH (20:14)
[2020-10-16] MEDS: IBUPROFEN 400 MG TAB PO PRN ×3 (01:03→13:32)
[2020-10-16] MEDS: ACETAMINOPHEN TAB 325 MG TAB PO PRN ×4 (03:15→18:06)
--- NOTE | 2020-10-16 04:01 | P.PN ---
Progress Note - Text Progress Note Date: 10/16/20 The patient seen on the [facility] due to complaints of tooth pain. The patient reported L lower molar tooth pain on-going for the past 24 hours. He denied fever or chills. Denied difficulty swallowing. General: Non-toxic, in no acute distress, appears stated age, normal weight HEENT: NC/AT, anicteric sclerae, moist conjunctiva, no lid-lag, PERRLA, L lower molar w/ tooth decay, L lateral mandibular tenderness without swelling, no submandibular or submental lymphadenopathy noted Skin: Warm, dry Extremities: No edema or contractures Psychiatric: Alert and oriented to person, place and time, appropriate affect Assessment/plan Pulpitis vs periodontitis -Will give empiric antibiotic coverage with Amoxicillin and Metronidazole -Patient will need dental evaluation: will consult oral surgery
[2020-10-16] MEDS: metroNIDAZOLE 250 MG TABLET PO SCH ×3 (04:17→21:16)
[2020-10-16] MEDS: AMOXICILLIN 500 MG CAP PO SCH ×2 (07:51→15:55)
[2020-10-16 08:51] LABS: HCT 41.1 % (39.0-53.0); HGB 13.6 gm/dL (13.0-17.5); MCH 28.7 pg (25.0-35.0); MCHC 33.1 g/dL (31.0-37.0); MCV 86.6 fL (80.0-100.0); Mean Platelet Volume 6.8; Platelet Count 240 k/uL (150-450); RBC 4.74 m/uL (4.30-5.90); RDW 12.5 % (11.5-15.5); WBC 9.6 k/uL (3.8-10.6)
[2020-10-16 09:03] LABS: African American GFR (CKD) >90 (>60 ml/min/1.73 sqM); Anion Gap 10 mmol/L; Blood Urea Nitrogen 19 mg/dL (9-20); Calcium 9.3 mg/dL (8.4-10.2); Carbon Dioxide 28 mmol/L (22-30); Chloride 99 mmol/L (98-107); Glucose 111 mg/dL (74-99); Non-African American GFR(CKD) >90 (>60 ml/min/1.73 sqM); Potassium 4.3 mmol/L (3.5-5.1); Sodium 137 mmol/L (137-145)
--- NOTE | 2020-10-16 14:16 | P.PN ---
Subjective Progress Note Date: 10/16/20 Subjective: Patient was seen today as a cross coverage for Dr. Styles. The patient was evaluated, chart reviewed, case discussed with the treatment team. Patient continues to present the same as yesterday was very superficial and guarded answers. He states still feeling depressed but denies feeling hopeless or suicidal. Denies any intent or plan to hurt himself or others. Denies any hallucinations, paranoid ideation, or delusions. At one point, the patient refused to answer any more question and continues to give no response and mute. No report of the sleep problem and patient ate his breakfast and lunch today. Patient does not attend groups or other unit activities, but reported that he is taking his medications and no side effects. Objective: Vitals has been reviewed. Mental status examination; Appearance: The patient appears stated age, adequately groomed and dressed, no specific features. Gait/posture: Normal gait, Normal arm swinging: No abnormal movements. Attitude and behavior: Not engaged, not cooperative, poor eye contact. Motor activity: Normal psychomotor activity Speech: Normal rate, tone. Mood: depressed Affect: Constricted Thought form: Impoverished Thought content: Non-delusional, denies suicidal thoughts, denies homicidal thoughts, denies intentions or plans. Perception: Denies any auditory or visual hallucinations Attention: No impairment. Orientation: Patient patient was fully oriented to time place person and situation. Insight: Patient has fair insight about his psychiatric disorder. Judgment: Patient has fair judgment about his psychiatric treatment. Assessment: Schizophrenia Rule out schizoaffective disorder Plan: Continue inpatient level of care due to need for further monitoring and stabilization Precautions: Continue 15 minutes check for safety. Consider medical consultation if any acute medical issues arise. Provide the patient individual, group therapy, substance use disorder counseling to give better insight and learn coping skills. Medications: Haldol Decanoate last dose 100 mg IM given on 10/10/20 Depakote 1000 mg at bedtime for mood stabilization. Continue as needed medications for psychiatric emergencies including psychosis, agitation and anxiety. Continue non-psychiatric medications for medical conditions as recommended by the medical team. Discharge patient to OUTPATIENT services upon a stabilization Objective - Vital Signs Vital signs: Vital Signs Temp 97.1 F L 10/13/20 11:55 Pulse 89 10/09/20 17:23 Resp 18 10/09/20 17:23 BP 116/64 10/09/20 17:23 Pulse Ox 98 10/09/20 17:23 - Labs CBC & Chem 7: 10/16/20 08:39 10/16/20 08:39 Labs: Abnormal Lab Results - Last 24 Hours (Table) 10/16/20 Range/Units 08:39 Glucose 111 H (74-99) mg/dL
[2020-10-16] MEDS: IBUPROFEN 600 MG TAB PO PRN (18:08)
[2020-10-16] MEDS: VALPROIC ACID ORAL SOLN 250 MG/5 ML CUP PO SCH (21:17)
[2020-10-16] MEDS: LORazepam 1 MG TAB PO PRN (22:09)
[2020-10-17] MEDS: AMOXICILLIN 500 MG CAP PO SCH ×3 (00:19→16:25)
[2020-10-17] MEDS: metroNIDAZOLE 250 MG TABLET PO SCH ×3 (06:28→21:03)
[2020-10-17] MEDS: IBUPROFEN 600 MG TAB PO PRN ×2 (08:26→16:26)
--- NOTE | 2020-10-17 10:53 | P.PN ---
Progress Note - Text Progress Note Date: 10/17/20 Interval History: Patient was seen at bedside but was much more agreeable and cooperative on approach. The patient is not reporting any suicidal or homicidal ideation, intention, and/or plan. He is not reporting any auditory or visual hallucinations. He is denying any paranoia or delusions. He continues to be inquiring about his discharge. He reports that he has no issues taking care of himself and that the concerns of his mother as well as the ACT team are out of proportion. This provider tried to educate the patient that when he is taking his medications he appears to be in better control of his faculties. The patient has not had any significant events over the weekend. He has been adherent with his medications is not reporting any significant side effects. Reports no chest pain, shyness of breath, or issues going to the restroom. The patient does express that he has a desire to get on disability and find employment as well. He expresses he wants to find more meaning in his life. We discussed at length that these concerns should be brought up to his outpatient provider as well. Mental Status Exam: General Appearance: Patient appears to be stated age, is alert, directable and cooperative. Behavior: Patient is lying in bed but is currently not displaying any agitated behavior. Fair eye contact. Speech: Patient's speech is fluent and nonpressured. Spontaneous, with normal tone. Mood/Affect: Mood is less irritable, mildly improving. Affect is congruent and constricted. Suicidality/Homicidality: Patient does not reporting any suicidal or homicidal ideation, intention, and/or plan. Perceptions: Patient does not endorse any auditory or visual hallucinations. Though content/process: Patient does not endorse any paranoia or other delusions. Memory and concentration: Grossly intact for the purposes of today's session. Judgment and insight: Mildly improving. Assessment Schizophrenia Plan: -Patient continues to meet criteria for inpatient psychiatric admission for symptom stabilization and safety. Patient is currently under court order for mental health treatment as of 09/28/2020. -Medications: The patient has received a total of 200 mg IM of Haldol Decanoate last given on 10/10/2020. Continue Depakene syrup to 1000 mg by mouth at bedtime. -We are awaiting recommendations from the patient's ACT team. -When necessary Ativan and Haldol for agitation/aggression. -NRT - nicotine patch -SW on board for discharge planning. Encouraged the patient to participate in milieu.
[2020-10-17] MEDS: BENZOCAINE 20 % GEL 15 GM TUBE MM PRN ×2 (11:50→17:07)
[2020-10-17] MEDS: ACETAMINOPHEN TAB 325 MG TAB PO PRN ×3 (11:50→21:03)
[2020-10-17] MEDS: LORazepam 1 MG TAB PO PRN (14:47)
[2020-10-17] MEDS: VALPROIC ACID ORAL SOLN 250 MG/5 ML CUP PO SCH (20:12)
[2020-10-18] MEDS: AMOXICILLIN 500 MG CAP PO SCH ×2 (00:19→08:31)
[2020-10-18] MEDS: metroNIDAZOLE 250 MG TABLET PO SCH ×2 (06:24→11:19)
[2020-10-18] MEDS: LORazepam 1 MG TAB PO PRN (09:50)
[2020-10-18 09:51] VITALS: BP 113/59; PULSE 83
--- NOTE | 2020-10-18 11:28 | P.DS ---
Providers Date of admission: 09/13/20 19:41 Expected date of discharge: 10/18/20 Attending physician: Artemio Styles MD Consults: 09/13/20 19:50 Consult Physician Routine Consulting Provider: Michelle Good Consult Reason/Comments: H&P and medical Do you want consulting provider notified?: Yes Primary care physician: Stated None - Discharge Diagnosis(es) (1) Schizophrenia Current Visit: Yes Status: Acute Priority: High Hospital Course: Admission HPI: Patient is a single, employed, 35-year-old male who was admitted involuntarily for psychosis and nonadherence with treatment. Patient presented to the hospital with petition and certificate filled out by his outpatient psychiatrist Dr. Chand. The patient has been noted to be increasingly paranoid, responding to internal stimuli, and expressing auditory hallucinations in the context of medication nonadherence. The patient has been also been noted to be lacking significant insight into his condition believing that he is not mentally ill. As per certificate, the patient has also been hostile and aggressive to his outpatient psychiatrist. Upon evaluation in the psychiatric unit, the patient remains paranoid and responding to internal stimuli. He remains suspicious this provider and provides very limited responses. He does admit to some auditory hallucinations but is not reporting any visual hallucinations. He refuses to respond to any further questioning regarding his psychiatric symptoms. The patient expresses that he does not require any psychotropic medications as he is not mentally ill. He is not reporting any suicidal or homicidal ideation, intention, and/or plan. He reports that he has no significant issues with sleep or appetite. He does state that he has been "living in the cold"and this has been noted as a concern of his outpatient psychiatrist as the patient has not been utilizing his heater this winter. Hospital course: Upon admission to the unit patient was initially monotone, non-spontaneous, flattened affect, and appeared to be responding to internal stimuli. Second clinical certificate was filled out as the patient was not presenting with inability to care for self and appeared to be psychotic. The patient was started on Risperdal for psychosis but was nonadherent with his medications and would refuse any treatment. The patient was eventually court ordered for mental health treatment as of 09/28/2020. At that time, the patient was transitioned from Risperdal to Haldol and if the patient was refusing the Haldol he would be given Haldol lactate as per court order for mental health treatment. The medication was gradually titrated to a final dose of 20 mg of Haldol per day. The patient was then transitioned to Haldol decanoate which was split into two 100 mg IM injections, with the last one given on 10/10/2020. The patient did display an improvement in his negative symptoms and began being more spontaneous but was noted to display odd and bizarre behaviors on the unit and was very intrusive with staff and peers. Depakote was started to address the patient's impulsivity and agitation. The patient was expressing a strong desire not to take Depakote and there was concern that the patient was attempting to cheek the medication. He was switched to Depakene syrup. Depakene syrup was gradually titrated to a final dose of 1000 mg at bedtime. The treatment team attempted to draw a Depakote level, but the patient is refusing at this time. Gradually, the patient did display significant improvement in his symptoms and became much more calm, cooperative, and not displaying any bizarre or intrusive behaviors. On the day of discharge, the patient is not reporting any suicidal or homicidal ideation, intention, and/or plan. He is not reporting any auditory or visual hallucinations. He is not reporting any paranoia or delusions at this time. He appears to be future oriented. He has been adherent with his Depakote. He denies any access to firearms or weapons. The patient was counseled on abstaining small substances including alcohol and marijuana. Prior to discharge, her therapy staff will be in close contact with the patient's ACT team to ensure continuity of care and safety upon discharge. The patient has been adherent with his medications and is not reporting any significant side effects. Mental status exam: General Appearance: Patient appears to be stated age is alert, pleasant, and cooperative. Patient is in no acute distress and has fair hygiene and grooming Behavior: Patient is calmly seated without any agitated behavior. Speech: Patient's speech is fluent and nonpressured. Mood/Affect: Patient reports their mood is "doing okay", affect is congruent and euthymic. Suicidality/Homicidality: Patient denies any suicidal or homicidal ideation, intention, and/or plan. Perceptions: Patient is denying any auditory or visual hallucinations. Though content/process: There is no evidence of any delusional thought content and thought process is linear and goal-directed. He is future oriented. Memory and concentration: AOX3, grossly intact for the purposes of this session. Can spell "WORLD" backwards correctly. Judgment and insight: Improved with guarded prognosis Impression: Schizophrenia Plan: -Continue with discharge today as patient has improved and stabilized psychiatrically and is not currently an imminent threat to himself and/or others. Patient will remain at chronically elevated risk for harm to self and/or others due to his limited insight and history of nonadherence with treatment. -Continue medications: -Haldol Decanoate 200 mg IM. Last loading dose of 100 mg IM of Haldol Decanoate was given on 10/10/2020. The patient is due for 200 mg IM of Haldol Decanoate on 11/07/20. -Depakene syrup 1000 mg by mouth at bedtime -Patient was counseled on the need for medication compliance and appropriate follow-up at mental health and also primary care for medical issues. Patient verbalized understanding and agreed. -Social work to arrange for and conduct family meeting to ensure safety upon discharge and answer any questions/concerns. Social work also to arrange for patients follow up appointments with [facility] for psychiatric care along with follow up with primary care provider. -Patient counseled on abstaining from recreational drugs and marijuana and alcohol. Was informed/educated on the adverse effects on their physical and mental health. Patient verbally agreed and understood. -Patient was instructed to return to the hospital or seek immediate medical care if their psychiatric or medical symptoms do worsen or reoccur. -Recommend follow-up of Depakote level in the outpatient setting. Patient is currently refusing at this time. -Psychoeducation and supportive therapy provided to patient. Risks and benefits of pharmacological treatment versus the risks and benefits of nontreatment weight and discussed. Informed consent discussion held. Common side effects of psychotropics discussed such as, but not limited to headache, GI disturbance, sexual dysfunction, movement disorders, sedation, and orthostatic hypotension. Life threatening and blackbox warnings of prescribed medications also discussed. Potential risks of operating a vehicle or heavy machinery discussed with patient at length. Advised on importance of compliance and a reliable and responsible manner. Patient advised to review FDA consumer labeling of all medications prior to taking. Patient verbalized understanding of potential risks, and agrees with current treatment plan. Patient advised to medically contact physician/emergency personnel if any acute changes in condition occur. Laboratory Results WBC 9.6 k/uL (3.8-10.6) 10/16/20 08:39 RBC 4.74 m/uL (4.30-5.90) 10/16/20 08:39 Hgb 13.6 gm/dL (13.0-17.5) 10/16/20 08:39 Hct 41.1 % (39.0-53.0) 10/16/20 08:39 MCV 86.6 fL (80.0-100.0) 10/16/20 08:39 MCH 28.7 pg (25.0-35.0) 10/16/20 08:39 MCHC 33.1 g/dL (31.0-37.0) 10/16/20 08:39 RDW 12.5 % (11.5-15.5) 10/16/20 08:39 Plt Count 240 k/uL (150-450) 10/16/20 08:39 MPV 6.8 10/16/20 08:39 Sodium 137 mmol/L (137-145) 10/16/20 08:39 Potassium 4.3 mmol/L (3.5-5.1) 10/16/20 08:39 Chloride 99 mmol/L (98-107) 10/16/20 08:39 Carbon Dioxide 28 mmol/L (22-30) 10/16/20 08:39 Anion Gap 10 mmol/L 10/16/20 08:39 BUN 19 mg/dL (9-20) 10/16/20 08:39 Creatinine 0.75 mg/dL (0.66-1.25) 10/16/20 08:39 Est GFR (CKD-EPI)AfAm >90 (>60 ml/min/1.73 sqM) 10/16/20 08:39 Est GFR (CKD-EPI)NonAf >90 (>60 ml/min/1.73 sqM) 10/16/20 08:39 Glucose 111 mg/dL (74-99) H 10/16/20 08:39 Calcium 9.3 mg/dL (8.4-10.2) 10/16/20 08:39 Coronavirus (PCR) Not Detected (Not Detectd) 09/13/20 18:14 Allergies Allergy/AdvReac Type Severity Reaction Status Date / Time No Known Allergies Allergy Verified 09/13/20 16:53 Vital Signs Temp 97.6 F 10/17/20 17:30 Pulse 83 10/18/20 09:50 Resp 18 10/09/20 17:23 BP 113/59 10/18/20 09:50 Pulse Ox 98 10/09/20 17:23 Patient Condition at Discharge: Stable Plan - Discharge Summary Discharge Rx Participant: Yes New Discharge Prescriptions: New Valproic Acid Oral Soln [Depakene Syrup] 1,000 mg PO HS 30 Days ml Haloperidol Decanoate [Haldol D] 200 mg IM Q28D #1 vial Discharge Medication List Haloperidol Decanoate [Haldol D] 200 mg IM Q28D #1 vial 10/18/20 [Rx] Valproic Acid Oral Soln [Depakene Syrup] 1,000 mg PO HS 30 Days ml 10/18/20 [Rx] Follow up Appointment(s)/Referral(s): [facility] [Outside] - 10/25/20 11:30 am (Saturday10/19/20 at 10 with LAQUITA Nielsen 10/25/[address] Chand ) None,Stated [Primary Care Provider] - 1-2 days Activity/Diet/Wound Care/Special Instructions: Activity and diet as tolerated. Avoid the use of street drugs and alcohol. Take all medications as prescribed. When you are in need of refills on your medications please contact your medical provider and/or outpatient psychiatrist to have this done. Please go to scheduled outpatient appointment for aftercare treatment. If symptoms return or become worse, call the crisis line at and/or go to the nearest emergency room for evaluation. Discharge Disposition: HOME SELF-CARE
[2020-10-18 13:44] VITALS: TEMP 98.5
== END 2020-10-18 13:25 | disposition home or self-care (01) | DRG 885 ==
LOC: EC 15:59 → 3MHU 19:41
PROVIDERS: ADMIT Psychiatry & Neurology Psychiatry; ATTEND Psychiatry & Neurology Psychiatry
DX: F20.9 Schizophrenia, unspecified (principal); R45.851 Suicidal ideations; Z91.128 Patient's intentional underdosing of medication regimen for other reason; Z20.822 Contact with and (suspected) exposure to COVID-19; T50.916A Underdosing of multiple unspecified drugs, medicaments and biological substances, initial encounter; G47.9 Sleep disorder, unspecified; R45.87 Impulsiveness; K08.89 Other specified disorders of teeth and supporting structures; Z87.891 Personal history of nicotine dependence; Z87.39 Personal history of other diseases of the musculoskeletal system and connective tissue; Z98.890 Other specified postprocedural states; Z83.3 Family history of diabetes mellitus; Z82.3 Family history of stroke; Z82.49 Family history of ischemic heart disease and other diseases of the circulatory system; Z81.8 Family history of other mental and behavioral disorders; Z78.1 Physical restraint status; Y63.6 Underdosing and nonadministration of necessary drug, medicament or biological substance
CPT/HCPCS: 80048; 82075; 85027; 87635; 99285

== ENCOUNTER 2021-07-20 02:39 | Emergency (ER) | payer OTHER ==
[2021-07-20 02:47] VITALS: BP 127/79; TEMP 98
--- NOTE | 2021-07-20 03:58 | XR ---
EXAMINATION TYPE: XR ankle complete RT DATE OF EXAM: 07/20/2021 COMPARISON: NONE HISTORY: Ankle pain TECHNIQUE: 3 views FINDINGS: There is soft tissue swelling over the lateral malleolus. Ankle mortise is anatomic. There is some lucent line projected over the medial malleolus. The talus appears intact. Subtalar joint is intact IMPRESSION: Lateral soft tissue swelling. No displaced fracture. Possible nondisplaced chip fracture of the medial malleolus.
[2021-07-20] MEDS ORDERED: Acetaminophen-Codeine 300-30mg TAB PO STA (04:01)
[2021-07-20] MEDS ORDERED: IBUPROFEN 800 MG TAB PO STA (04:01)
--- NOTE | 2021-07-20 04:01 | ED ---
Lower Extremity Injury HPI - General Chief Complaint: Extremity Injury, Lower Stated Complaint: [facility] RT ankle injury Time Seen by Provider: 07/20/21 02:42 Source: patient, RN notes reviewed, old records reviewed Mode of arrival: wheelchair Limitations: no limitations - History of Present Illness Initial Comments: This is a 35-year-old male DF for evaluation. Patient presents today for evaluation regards to right ankle pain and injury. Patient has severe ankle swelling and pain is only was able to ambulate. Patient has difficulty in learning secondary to pain. No other injuries noted. This was a work-related injury MD Complaint: ankle injury (right) -: minutes(s) Injury: Ankle: Right Type of Injury: blunt, inversion Place: work Severity: moderate Severity scale (1-10): 7 Improves With: nothing Worsens With: movement, palpation Context: walking Associated Symptoms: swelling, able to partially bear weight Treatments Prior to Arrival: cold therapy - Related Data Previous Rx's Medication Instructions Recorded Amoxic-Pot Clav 875-125Mg 1 tab PO BID 7 Days #14 tab 10/18/20 [Augmentin 875-125] Haloperidol Decanoate [Haldol D] 200 mg IM Q28D #1 vial 10/18/20 Valproic Acid Oral Soln [Depakene 1,000 mg PO HS 30 Days ml 10/18/20 Syrup] Allergies Allergy/AdvReac Type Severity Reaction Status Date / Time No Known Allergies Allergy Verified 07/20/21 02:47 Review of Systems ROS Statement: Those systems with pertinent positive or pertinent negative responses have been documented in the HPI. ROS Other: All systems not noted in ROS Statement are negative. Past Medical History Past Medical History: No Reported History History of Any Multi-Drug Resistant Organisms: None Reported Past Surgical History: Orthopedic Surgery Additional Past Surgical History / Comment(s): left knee surgery Past Psychological History: Bipolar, Depression, Schizophrenia Smoking Status: Former smoker Past Alcohol Use History: None Reported Past Drug Use History: None Reported - Past Family History Father Family Medical History: CVA/TIA, Diabetes Mellitus Mother Additional Family Medical History / Comment(s): aortic aneurysm family Additional Family Medical History / Comment(s): mental health issues runs in the family General Exam - General Exam Comments Initial Comments: All range of motion of right ankle with severe pain General appearance: alert, in no apparent distress Head exam: Present: atraumatic, normocephalic, normal inspection Eye exam: Present: normal appearance, PERRL, EOMI. Absent: scleral icterus, conjunctival injection, periorbital swelling ENT exam: Present: normal exam, mucous membranes moist Neck exam: Present: normal inspection. Absent: tenderness, meningismus, lymphadenopathy Respiratory exam: Present: normal lung sounds bilaterally. Absent: respiratory distress, wheezes, rales, rhonchi, stridor Cardiovascular Exam: Present: regular rate, normal rhythm, normal heart sounds. Absent: systolic murmur, diastolic murmur, rubs, gallop, clicks GI/Abdominal exam: Present: soft, normal bowel sounds. Absent: distended, tenderness, guarding, rebound, rigid Extremities exam: Present: normal inspection, full ROM, normal capillary refill. Absent: tenderness, pedal edema, joint swelling, calf tenderness Back exam: Present: normal inspection Neurological exam: Present: alert, oriented X3, CN II-XII intact Psychiatric exam: Present: normal affect, normal mood Skin exam: Present: warm, dry, intact, normal color. Absent: rash Course Vital Signs 07/20/21 07/20/21 02:43 03:47 Temperature 98 F Pulse Rate 100 84 Respiratory 18 16 Rate Blood Pressure 127/79 O2 Sat by Pulse 98 Oximetry - Reevaluation(s) Reevaluation #1: Medical record is reviewed Patient symptoms are improved Patient informed results and questions answered Medical Decision Making - Medical Decision Making 35 male to the emergency department for evaluation of significant right ankle pain and swelling. Patient's ankle pain is a significant sprain and patient can be discharged home - Radiology Data Radiology results: report reviewed (X-ray right ankle is positive for swelling no fracture), image reviewed Disposition Clinical Impression: Ankle sprain, Right ankle sprain Disposition: HOME SELF-CARE Condition: Good Instructions (If sedation given, give patient instructions): Ankle Sprain (ED) Is patient prescribed a controlled substance at d/c from ED?: No Referrals: None,Stated [Primary Care Provider] - 1-2 days
[2021-07-20] MEDS ORDERED: ACET/COD 300 MG/30 MG STARTER PACK 6 TAB BTL PO STA (04:28)
[2021-07-20 04:42] VITALS: PULSE 84; RESP 16
== END 2021-07-20 04:45 | disposition home or self-care (01) ==
LOC: EC 02:39
DX: S93.401A Sprain of unspecified ligament of right ankle, initial encounter (principal); F31.9 Bipolar disorder, unspecified; Z87.891 Personal history of nicotine dependence; X58.XXXA Exposure to other specified factors, initial encounter
CPT/HCPCS: 99283

== ENCOUNTER → 2021-07-28 | Outpatient (CLI) | payer OTHER ==
--- NOTE | 2021-07-28 13:08 | XR ---
EXAMINATION TYPE: XR tibia fibula RT DATE OF EXAM: 07/28/2021 COMPARISON: NONE HISTORY: Pain TECHNIQUE: Two views are submitted. FINDINGS: Lucency involving the medial malleolus. Soft tissue edema. Additional soft tissue ossifications adjac ent to the malleus.. Arthropathy of the knee.. IMPRESSION: 1. Findings are compatible hairline fracture through the medial malleolus correlate with point tender ness. 2. Osteoarthritis.
--- NOTE | 2021-07-28 13:09 | XR ---
EXAMINATION TYPE: XR foot complete RT DATE OF EXAM: 07/28/2021 COMPARISON: NONE HISTORY: Pain TECHNIQUE: Three views are submitted. FINDINGS: The osseous structures are intact. There is no acute fracture or dislocation. Joint spaces are p ostsurgical change involving the second digit with apparent previous amputation or congenital malform ation. There is a lucency involving the medial malleolus extending to the articular surface. IMPRESSION: 1. Mildly displaced fracture medial malleolus.
== END | disposition home or self-care (01) ==
LOC: RADXRMAIN 11:49
PROVIDERS: ATTEND Emergency Medicine
DX: S82.51XA Displaced fracture of medial malleolus of right tibia, initial encounter for closed fracture (principal)

== ENCOUNTER → 2021-08-02 | Outpatient (CLI) | payer OTHER ==
--- NOTE | 2021-08-02 15:02 | XR ---
Right ankle HISTORY: M25.571 3 views right ankle There is soft tissue swelling present. Multiple calcifications are present distal to the medial malle olus which are indeterminate. Alignment and bone mineralization are maintained. Spurring is present a t tibiotalar joint, talar neck. No evidence of dislocation. Small ossific density present distal to t he fibula on the oblique view is noted. IMPRESSION: Osteoarthritis secondary to remote trauma is suspected. Small ossific densities could be due to remote trauma but are indeterminate.
== END | disposition home or self-care (01) ==
LOC: RADXRMAIN 09:42
PROVIDERS: ATTEND Orthopaedic Surgery
DX: M19.071 Primary osteoarthritis, right ankle and foot (principal)